=== PATIENT | female | born 2000 | race Hispanic/Latino ===

== ENCOUNTER 2020-10-22 13:55 | Emergency (ER) | payer BC, SELFPAY ==
[2020-10-22 14:06] VITALS: BP 123/87; PULSE 86; RESP 16; TEMP 36.5; O2SAT 100
--- NOTE | 2020-10-22 14:50 | ED.URI ---
HPI - URI/Sore Throat General Chief Complaint: Upper Respiratory Infection Stated Complaint: vieira/congestion Time Seen by Provider: 10/22/20 14:50 Source: patient Mode of arrival: ambulatory Limitations: no limitations History of Present Illness HPI Narrative: Radha Funk is a 19 yo female with no PMH who started having fatigue immediately after having vaccine on Sunday, no induration of left arm, states she has respiratory symptoms including congestion and cough. Related Data Home Medications Medication Instructions Recorded Confirmed No Home Medications 10/22/20 10/22/20 Allergies Allergy/AdvReac Type Severity Reaction Status Date / Time No Known Allergies Allergy Unverified 10/22/20 14:14 Review of Systems Review of Systems: CONSTITUTIONAL: Denies fever, chills, sweats. Fatigue EYES: Denies visual changes, redness, discharge. ENT: Denies rhinorrhea, has congestion, sore throat, otalgia. CARDIOVASCULAR: Denies chest pain, palpitations, edema. RESPIRATORY: Denies dyspnea, wheezing, has cough GASTROINTESTINAL: Denies abdominal pain, nausea, vomiting, diarrhea. GENITOURINARY: Denies dysuria, hematuria, abnormal discharge SKIN: Denies rash or itching. NEUROLOGIC: Denies numbness, or focal weakness. PSYCHIATRIC: Denies anxiety or depression. [facility] Past Medical History Medical History No acute medical problems Social History Social History (Updated 10/22/20 @ 14:59 by Viki Winchester CNP) Smoking status: Never smoker Alcohol intake: current Comments At time of signature, I agree with nursing past medical, surgical, social and family history. There is no relevant family history pertinent to the presenting complaint. Exam Narrative: GENERAL: This is a well-nourished, well-developed patient, in mild distress. HEAD: normocephalic, atraumatic. EYES: . Sclera clear/white. Vision is grossly intact. EARS: External ears normal, auditory canals clear and without drainage, TMs normal without perforation. Hearing grossly intact. NOSE: External nose normal with nasal discharge, nares without redness, has rhinorrhea. THROAT: Mucous membranes moist, posterior pharynx mild erythema NECK: Neck supple, non-tender CARDIOVASCULAR: Regular rate and rhythm without murmurs, gallops, or rubs. RESPIRATORY: Clear to auscultation. Breath sounds equal bilaterally. No wheezes, rales, or rhonchi. GASTROINTESTINAL: Abdomen soft, SKIN: warm, intact with no suspicious lesions or rash, good texture and turgor. NEURO: awake, alert, and oriented to person, place and time. There were no obvious focal neurologic abnormalities. Steady gait EXTREMITIES: Normal range of motion. BACK: Nontender without deformity Course Course Emergency Course: Patient told nurse that she has not had a menstrual cycle in 3 months and is not using control Suprax a test was done which was negative her UA was also done which had only protein in the urine Complaining of respiratory symptoms which can be treated only with Benadryl Zyrtec She asked for a Covid test because she got PCR she needs a work note because she is quarantined till the results are received Vital Signs Vital signs: Vital Signs Temperature 97.7 F 10/22/20 14:06 Pulse Rate 86 10/22/20 14:06 Respiratory Rate 16 10/22/20 14:06 Blood Pressure 123/87 10/22/20 14:06 Pulse Oximetry 100 10/22/20 14:06 Temperature 97.7 F 10/22/20 14:06 Pulse Rate 86 10/22/20 14:06 Respiratory Rate 16 10/22/20 14:06 Blood Pressure 123/87 10/22/20 14:06 Pulse Oximetry 100 10/22/20 14:06 MDM - URI/Sore Throat Differential Diagnosis Differential diagnosis: Likely upper respiratory infection, viral infection, influenza and pharyngitis Lab Data Labs: UCG Bedside Result Negative Reference Range: Negative Urine Glucose Negative
[2020-10-23 18:08] LABS: SARS-CoV-2 RNA PCR Negative
== END 2020-10-22 15:05 | disposition home or self-care (01) ==
PROVIDERS: Emergency Provider Nurse Practitioner
DX: J06.9 Acute upper respiratory infection, unspecified (principal); Z20.822 Contact with and (suspected) exposure to COVID-19
CPT/HCPCS: 81003; 81025; 99213; C9803; G0463; U0003; U0005

== ENCOUNTER 2023-01-05 14:45 | Outpatient (CLI) | payer BC, OTHER, SELFPAY ==
[2023-01-05 15:13] VITALS: BP 140/90; PULSE 83
[2023-01-05 15:15] VITALS: BP 140/90; PULSE 82; BMI 30.8
[2023-01-05 15:29] LABS: Basophils Percent Auto 0.2 % (0.2-1.2); Eosinophils Percent Auto 0.2 % (0-4.4); Hematocrit 33.1 % (37.0-47.0); Hemoglobin 10.9 g/dL (12.0-15.0); Immature Granulocyte Absolute 0.03 K/mm3 (0.00-0.031); Immature Granulocyte Percent A 0.4 % (0-0.5); Lymphocytes Percent Auto 22.3 % (18.3-44.2); Mean Corpuscular HGB Conc 32.9 g/dl (32-36); Mean Corpuscular Hemoglobin 26.5 pg (26-34); Mean Corpuscular Volume 80.5 fl (80-100); Mean Platelet Volume 12.5 fl (7.4-10.4); Monocytes Absolute Auto 0.4 K/mm3 (0.1-0.6); Monocytes Percent Auto 4.3 % (2.6-8.5); Neutrophils Absolute Auto 5.9 K/mm3 (1.3-6.7); Neutrophils Percent Auto 72.6 % (45.5-73.1); Platelet Count Result 229 k/mm3 (150-375); Red Blood Count 4.11 M/mm3 (4.2-5.4); Red Cell Distribution Width 13.1 % (11.5-14.5); White Blood Count 8.1 K/mm3 (4.5-10.0)
[2023-01-05 15:30] VITALS: BP 124/84; PULSE 77
[2023-01-05 15:35] LABS: Appearance Urine Cloudy (Clear); Bacteria Urine 1+ /hpf; Bilirubin Urine Negative (Negative); Blood Urine Trace (Negative); Color Urine Yellow (Yellow); Glucose Urine UA Negative (Negative); Ketones Urine Trace mg/dL (Negative); Leukocyte Esterase Ur Trace LEU/UL (NEGATIVE); Nitrate Urine Negative (Negative); Protein Urine 3+ mg/dL (Negative); RBC Urine 0-2 /hpf (0-2); Specific Grav Ur 1.026 (1.001-1.035); Squamous Epithelial Cell Urine Moderate /hpf (Few)
[2023-01-05 15:36] LABS: Creatinine Urine 184.5 mg/dL
[2023-01-05 15:41] LABS: Alanine Aminotransferase 14 U/L (6-35); Albumin Level 3.8 g/dL (3.5-5.1); Alkaline Phosphatase 180 U/L (38-126); Anion Gap 9 mmol/L (8-16); Aspartate Amino Transferase 23 U/L (14-36); Bilirubin,Total 0.3 mg/dL (0.2-1.3); Blood Urea Nitrogen 10 mg/dL (7-17); Calcium 9.1 mg/dL (8.4-10.2); Carbon Dioxide 21 mmol/L (22-30); Chloride 104 mmol/L (98-107); Estimated Glomerular Filt Rate > 60; Glucose 96 mg/dL (65-110); Potassium 4.4 mmol/L (3.4-5.0); Sodium 134 mmol/L (137-145); Uric Acid 5.5 mg/dL (2.5-7.5)
[2023-01-05 15:44] LABS: Total Protein Urine Random > 600 mg/dL
[2023-01-05 15:48] LABS: Add Urine Microscopic? YES
[2023-01-05 16:00] VITALS: BP 126/88; PULSE 80
[2023-01-05 16:15] VITALS: BP 126/88; PULSE 78
== END 2023-01-05 16:20 | disposition home or self-care (01) ==
LOC: ANHOBOP 14:55 → ANHOBPP 15:00
PROVIDERS: Visit Provider Advanced Practice Midwife
DX: O13.9 Gestational [pregnancy-induced] hypertension without significant proteinuria, unspecified trimester (principal); Z3A.00 Weeks of gestation of pregnancy not specified
CPT/HCPCS: 36415; 59025; 80053; 81001; 82570; 84156; 84550; 85025; 87086; 99199

== ENCOUNTER 2023-01-07 11:16 | Outpatient (RCR) | payer BC, OTHER, SELFPAY ==
[2023-01-07 12:11] VITALS: BP 132/80; PULSE 75
[2023-01-07 12:36] LABS: Collection Time Urine 24 HOURS
[2023-01-07 12:45] LABS: Creatinine Urine 83.5 mg/dL; Total Protein Urine Random 187 mg/dL
[2023-01-07 13:07] LABS: Total Protein Urine 24 Hr 2805 mg/24hr (28-141); Total Volume 24 Hour Urine 1500 ml
[2023-01-07 13:17] LABS: Patient Weight 200 Lbs
== END 2023-04-07 23:59 | disposition home or self-care (01) ==
LOC: ANHOBOP 11:16
PROVIDERS: Visit Provider Advanced Practice Midwife
DX: O16.3 Unspecified maternal hypertension, third trimester (principal); Z3A.37 37 weeks gestation of pregnancy
CPT/HCPCS: 59025; 81050; 82575; 84156

== ENCOUNTER 2023-01-08 11:36 | Inpatient (IN) | payer BC, OTHER, SELFPAY ==
[2023-01-08] VITALS (114 sets, daily range): BP systolic 121–162; BP diastolic 65–113; PULSE 42–126; RESP 18; TEMP 36.6–36.8; O2SAT 82–100; BMI 31.1
--- NOTE | 2023-01-08 12:00 | LDADM ---
This patient, Radha Funk, was admitted to Labor/Delivery/Recovery 103 on 01/08/23 at 11:36. Plans for labor, pain management and were discussed with patient. Patient/family oriented to hospital policies and general routines including ID bracelet, bed and alarms, visiting hours, pain management, procedures, bathroom and other care routines, personal items, smoking policy, room service/diet and guest tray routines, security routines, and visiting hours. Patient/Family are encouraged to report perceived risks to care and to ask questions if they do not understand what they are told or what they should do. See OBIX for further documentation.
[2023-01-08 12:43] LABS: Basophils Percent Auto 0.3 % (0.2-1.2); Eosinophils Percent Auto 0.3 % (0-4.4); Hematocrit 33.6 % (37.0-47.0); Hemoglobin 10.9 g/dL (12.0-15.0); Immature Granulocyte Absolute 0.02 K/mm3 (0.00-0.031); Immature Granulocyte Percent A 0.3 % (0-0.5); Lymphocytes Absolute Auto 1.93 K/mm3 (0.9-3.2); Lymphocytes Percent Auto 26.8 % (18.3-44.2); Mean Corpuscular HGB Conc 32.4 g/dl (32-36); Mean Corpuscular Hemoglobin 26.9 pg (26-34); Mean Platelet Volume 12.4 fl (7.4-10.4); Monocytes Absolute Auto 0.4 K/mm3 (0.1-0.6); Monocytes Percent Auto 5.3 % (2.6-8.5); Neutrophils Absolute Auto 4.8 K/mm3 (1.3-6.7); Platelet Count Result 214 k/mm3 (150-375); Red Blood Count 4.05 M/mm3 (4.2-5.4); Red Cell Distribution Width 13.2 % (11.5-14.5); White Blood Count 7.2 K/mm3 (4.5-10.0)
[2023-01-08] MEDS: DINOPROSTONE 10 MG VAG INSERT VAGINAL (12:43)
[2023-01-08 12:54] LABS: Alanine Aminotransferase 18 U/L (6-35); Albumin Level 3.9 g/dL (3.5-5.1); Alkaline Phosphatase 192 U/L (38-126); Anion Gap 9 mmol/L (8-16); Aspartate Amino Transferase 29 U/L (14-36); Bilirubin,Total 0.4 mg/dL (0.2-1.3); Blood Urea Nitrogen 10 mg/dL (7-17); Calcium 8.9 mg/dL (8.4-10.2); Carbon Dioxide 22 mmol/L (22-30); Chloride 104 mmol/L (98-107); Estimated Glomerular Filt Rate > 60; Glucose 87 mg/dL (65-110); Sodium 135 mmol/L (137-145)
[2023-01-08 16:17] LABS: Rapid Plasma Reagin Non-Reactive (NonReactive)
[2023-01-08] MEDS: LACTATED RINGERS 1,000 ML 125 ML IV CONT ×2 (17:56→22:59)
--- NOTE | 2023-01-08 19:41 | WPDANESEPPF ---
Anes - Initial Pre Proc Eval Procedure: labor epidural Date/Time: 01/08/23 19:41 Surgeon: Devora Dover MD Pre Op Diagnosis: labor pain Pre Op Diagnosis: Induction of Labor Patient Data Age: 22 Gender: F Height: 1.57 m Weight: 77.3 kg Last Vital Signs Temp 36.8 C 01/08/23 16:00 Pulse 74 01/08/23 19:38 BP 137/94 H 01/08/23 19:38 Pulse Ox 98 01/08/23 19:35 O2 Del Method Room Air 01/08/23 12:00 Allergies Allergy/AdvReac Type Severity Reaction Status Date / Time No Known Allergies Allergy Unverified 10/22/20 14:14 Home Medications Medication Instructions Recorded Confirmed Type prenat.vits,joseph,dvl-ueav-xxpdv 1 tablet 12/25/22 History valacyclovir 500 mg tablet 500 mg PO Q12H 12/25/22 12/25/22 History (Valtrex) Laboratory Tests 01/08/23 12:30 WBC 7.2 K/mm3 (4.5-10.0) RBC 4.05 L M/mm3 (4.2-5.4) Hgb 10.9 L g/dL (12.0-15.0) Hct 33.6 L % (37.0-47.0) MCV 83.0 fl (80-100) MCH 26.9 pg (26-34) MCHC 32.4 g/dl (32-36) RDW 13.2 % (11.5-14.5) Plt Count 214 k/mm3 (150-375) MPV 12.4 H fl (7.4-10.4) Immature Gran % (Auto) 0.3 % (0-0.5) Neut % (Auto) 67.0 % (45.5-73.1) Lymph % (Auto) 26.8 % (18.3-44.2) Stan[place] % (Auto) 5.3 % (2.6-8.5) Eos % (Auto) 0.3 % (0-4.4) Baso % (Auto) 0.3 % (0.2-1.2) Lymph # (Auto) 1.93 K/mm3 (0.9-3.2) Stan[place]aus # (Auto) 0.4 K/mm3 (0.1-0.6) Eos # (Auto) 0.0 K/mm3 (0-0.3) Baso # (Auto) 0.0 K/mm3 (0.0-0.1) Abs Immat Gran (auto) 0.02 K/mm3 (0.00-0.031) Absolute Neuts (auto) 4.8 K/mm3 (1.3-6.7) Absolute Nucleated RBC 0.0 K/mm3 (0.0-0.012) Nucleated RBC % 0.0 % (0.0-0.2) Sodium 135 L mmol/L (137-145) Potassium 4.0 mmol/L (3.4-5.0) Chloride 104 mmol/L (98-107) Carbon Dioxide 22 mmol/L (22-30) Anion Gap 9 mmol/L (8-16) BUN 10 mg/dL (7-17) Creatinine 0.50 L mg/dL (0.7-1.0) Estim Creat Clear Calc Not Reportable Estimated GFR > 60 (59 - ) Glucose 87 mg/dL (65-110) Uric Acid 6.0 mg/dL (2.5-7.5) Calcium 8.9 mg/dL (8.4-10.2) Total Bilirubin 0.4 mg/dL (0.2-1.3) AST 29 U/L (14-36) ALT 18 U/L (6-35) Alkaline Phosphatase 192 H U/L (38-126) Total Protein 7.0 g/dL (6.3-8.2) Albumin 3.9 g/dL (3.5-5.1) RPR Non-reactive (NonReactive) Blood Type B Positive Antibody Screen Negative Patient hx anesthesia problems: none Family hx anesthesia problems: none Results Review: All pre-operative results and documents have been reviewed as part of the pre-operative evaluation. [facility] Past Medical History Medical History No acute medical problems Family History Family History (Updated 12/25/22 @ 14:39 by Mariel Perez RN) Sibling Diabetes mellitus Social History Social History (Updated 10/22/20 @ 14:59 by Viki Winchester, SUN) Smoking status: Never smoker Alcohol intake: current Substance use: never Lack of Transportation: No Lack of Food: Never True Current Housing: I Have Housing Concerned About Future Housing: No Difficulty Paying Gas/Electric Bills: No Difficulty Paying for Meds: No Currently Unemployed: No Education: High School Diploma/GED Difficulty w/ Childcare or Family Care: No Spiritual care concerns: No Anes - Eval Final PreProcedure Day of Procedure 01/08/23 19:41 Patient weight: obese ASA classification: III Anesthetic plan: proceed Anesthesia type and monitoring: regional epidural and standard monitoring Results Review: All pre-operative results and documents have been reviewed as part of the pre-operative evaluation. Informed Consent: The patient's anesthetic plan and its attendant risks and benefits were discussed with the patient/family/POA. Questions were solicited and answers provided to th
--- NOTE | 2023-01-08 20:05 | WPDOBADMIT ---
Obstetrics - Admit Note Admission Note: record reviewed. No pertinent additions to the history and/or any subsequent changes in the physical findings that are not consistent with the expected course of the were found. Additions to the history and/or subsequent changes in the physical findings follow. IOL preeclampsia without severe features, SVE 4/80/-2, AROM moderate amount of clear odorless fluid, dr encarnacion co-managing care. IUPC placed
[2023-01-08] MEDS: valACYclovir HCL 500 MG TABLET PO (21:32)
[2023-01-08] MEDS: LACTATED RINGERS 500 ML 999 ML IV CONT (22:25)
[2023-01-09] VITALS (77 sets, daily range): BP systolic 106–167; BP diastolic 62–113; PULSE 68–122; RESP 16–18; TEMP 36.4–37.1; O2SAT 89–100
--- NOTE | 2023-01-09 02:57 | PM.OBPRVD ---
OB - Vaginal Delivery Note Procedure Delivery date: 01/09/23 Events: Preeclampsia w/o severe features Induction method: AROM and Per Cervidil Protocol Delivery monitor: External FHT and Internal FHT Route of delivery: Laceration Description: Labial (right) Delivery repair: vicryl Specimen: Yes Quantitative Blood Loss (ml): 125 Anesthesia type: Epidural Disposition: Floor Complications: None Baby Date of : 01/09/23 Time of : 02:41 Weeks of gestation at delivery: 38 gender: Female presentation: vertex position: Left Occiput Anterior Placenta delivery description: Spontaneous Cord Vessel Description: 3 Vessels and Delayed Cord Clamping score one minute: 8 score five minutes: 9 Narrative: mother and baby skin to skin in stable condition
[2023-01-09] MEDS: OXYTOCIN 30 UNITS/NS 500 ML 30 UNITS/500 ML BAG 125 UNITS IV CONT (03:50)
--- NOTE | 2023-01-09 05:25 | PC.NURSE ---
Patient transferred to post room # 285 via ( W/C ). Support person present. Oriented to unit, room, information board, rooming in, admission packet and security measures. Patient verbalizes understanding.
[2023-01-09] MEDS: IBUPROFEN 600 MG TABLET PO (05:40)
--- NOTE | 2023-01-09 14:55 | PC.NURSE ---
[id number] Breast pump provided prior to meeting due to nipple shield use. Instructions given on cleaning, care, usage, that there should be no pain, pumping schedule for milk production, collection, and storage of human milk. Patient was assessed for correct placement, flange size, to pump for comfort and nipple stretching/stimulation for adequate milk production every 3 hours (8 times in 24 hours) 1-2 times at night. Mother is encouraged to record the pumping schedule on the feeding sheet.?Mother voiced understanding of the education shared along with mom/baby guide and the pump measurement, flange fit handout for additional resource information. Resources provided for inpatient and outpatient services with the feeding sheet, mom/baby guide and name written on the communication board. Mother voiced understanding of information and will call if there is a request for assistance. Reported to the Primary RN.
--- NOTE | 2023-01-09 16:10 | PCCCNOTE ---
Care Coordination met with pt and FOB this afternoon to discuss discharge planning. Pt.'s current D/C plan is to return home with her parents. Pt. is independent with ADls and ambulation. She states she has everything needed to safely bring baby home. She will continue to breast feed and bottle feed. Pt. is in process of applying for WIC. 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 Neither pt. nor baby were drug tested at admission. Will follow.
[2023-01-10] VITALS (17 sets, daily range): BP systolic 117–136; BP diastolic 78–94; PULSE 62–98; RESP 16–18; TEMP 36.5–36.9; O2SAT 96–100
[2023-01-10] MEDS: IBUPROFEN 600 MG TABLET PO ×4 (00:30→23:53)
[2023-01-10 05:03] LABS: Hematocrit 23.9 % (37.0-47.0); Hemoglobin 7.7 g/dL (12.0-15.0)
--- NOTE | 2023-01-10 07:42 | PM.OBPNVD ---
OB - PN: Subj Subjective Date/time seen: 01/10/23 07:42 Interval history: PP Day 1 no complaints H&H 7.7 Baby doing well denies MELLO, vision changes, epigastric pain OB - PN: Obj Data Labs 01/10/23 04:30 01/08/23 12:30 Labs: Laboratory Results - last 24 hr 01/10/23 04:30 Hgb 7.7 L D Hct 23.9 L OB - PN A/P Plan day: 1 Plan: routine care Comments: plan a blood transfusion 2 units Time Spent With Patient Time: Total time spent is greater than 50% in coordination of care (as documented) at patient's floor/unit and/or counseling patient: Review of Systems Review of Systems: All systems reviewed & are unremarkable except as noted in HPI and below Exam Const: General: cooperative, healthy appearing and comfortable Resp: Effort & Inspection: normal respiratory effort Cardio: Rate: regular rate GI: Other: soft Skin: General skin exam: normal color Neuro: General: patient oriented x3
[2023-01-10] MEDS: POLYSACCHARIDE IRON COMPLEX 150 MG CAPSULE PO ×2 (08:12→16:27)
[2023-01-10] MEDS: MULTIVIT/MIN/PREN/FOL AC/IRON TABLET 1 TAB PO (08:13)
[2023-01-10] MEDS: DOCUSATE SODIUM 100 MG CAPSULE PO ×2 (08:13→16:27)
--- NOTE | 2023-01-10 09:30 | PC.NURSE ---
0930 RN went in room to start blood, per patient she would like to wait until her mother arrives who is going to help her take a shower before she receives the blood. Patient to call out when she is ready.
[2023-01-10] MEDS: ACETAMINOPHEN 325 MG TABLET 650 MG PO (19:14)
[2023-01-11 04:30] VITALS: BP 131/83; PULSE 79; RESP 16; TEMP 36.6
[2023-01-11] MEDS: ACETAMINOPHEN 325 MG TABLET 650 MG PO (04:40)
[2023-01-11 05:21] LABS: Hematocrit 29.8 % (37.0-47.0); Hemoglobin 9.9 g/dL (12.0-15.0)
--- NOTE | 2023-01-11 08:00 | PC.NURSE ---
PT introductions made and plan of care discussed per post , pain management, breast/bottle feeding, daily care activities and pending discharge to home. PT sole recipient of such instructions since fob speaks only Salvadorean but pt is bilingual. Language is a barriers for the fob. PT received such instructions per one to one discussion, mom baby care guide and demonstrations this shift. PT verbalized understanding
--- NOTE | 2023-01-11 08:29 | PM.OBPNVD ---
OB - PN: Subj Subjective Date/time seen: 01/11/23 08:29 Interval history: PP Day 1 no complaints H&H 7.7 Baby doing well denies MELLO, vision changes, epigastric pain Patient comments: no complaints, pain well controlled, incisional pain, tolerating diet and flatus present OB - PN: Obj Data Labs 01/11/23 04:36 01/08/23 12:30 Labs: Laboratory Results - last 24 hr 01/08/23 01/11/23 12:30 04:36 Hgb 9.9 L Hct 29.8 L Blood Type B Positive Antibody Screen Negative Crossmatch See Detail OB - PN A/P Plan day: 1 Plan: routine care Comments: No problems, routine care Time Spent With Patient Time: Total time spent is greater than 50% in coordination of care (as documented) at patient's floor/unit and/or counseling patient: Exam Const: General: comfortable, no acute distress and alert Resp: Effort & Inspection: normal respiratory effort Auscultation: no crackles, no rales and no rhonchi Cardio: Rate: regular rate Heart sounds: no click, no murmurs and no rubs GI: Inspection: non-distended GI Palp: No Tenderness to palpation present (GI) Auscultation: normal bowel sounds Other: Incision - CDI Extrem: General: normal to inspection, no pedal edema and no calf tenderness
--- NOTE | 2023-01-11 08:30 | PM.OBDSVD ---
DS: Admitting Diagnosis Discharge Date January 11, 2023 Admitting Diagnosis term DS: Discharge Diagnosis Discharge Diagnosis (1) Term delivered: Code(s): O80 - Encounter for full-term uncomplicated delivery Status: Acute OB - DS: Summary OB Procedures : None OB Procedures Intrapartum: Spontaneous Vag Delivery OB Procedures: : None Peripartum Data Laceration Description: Labial (right) Time Spent with Patient Time attestation: Total time spent providing and/or coordinating discharge services: DS: Data Data Completed and Pending Completed studies during hospitalization: Pending at discharge 01/09/23 03:02 Surgical [PTH] Routine Labs on day of discharge: Labs from last 24 hours 01/11/23 01/08/23 04:36 12:30 Hgb 9.9 L Hct 29.8 L Blood Type B Positive Antibody Screen Negative Crossmatch See Detail Discharge Plan Discharge Discharging Clinician: Devora Dover Patient Disposition: Home, Self-Care Activity: pelvic rest Diet: regular Discharge Instructions: Education: Mom and Baby Guide Given to: Mother Follow-Up: Call your delivering provider's office for an appointment to be seen in: 1 Week Mom and baby should come to the [facility] for the follow-up appointment. Appointment Date/Time: 01/12/23 @ 1430 What to expect at your follow-up visit: Blood Pressure Check Call [phone] if you are unable to keep your appointment time. BREAST CARE: * Wear a snug supportive bra. * For engorgement discomfort: Breast Feeding: * Apply warm moist washcloths * Express milk as needed to relieve engorgement * Wear loose clothing Bottle Feeding: * May apply ice packs * For sore nipples: * Identify correct latch-on * Apply warm moist washcloths before and after nursing * Air dry nipples after nursing * May apply Lansinoh cream to nipples PERINEAL CARE: * Until bleeding stops, use your [place] bottle after urinating * Change your pad frequently throughout the day * You may take sitz baths several times a day (fill your bathtub with warm water and soak for 20 minutes.) Do NOT bathe in the water * No tub baths until seen by your physician - You may shower ACTIVITY: * Rest as much as possible. * Do not exercise or lift anything heavier than your baby (such as laundry or other children.) * Avoid stairs or driving as much as possible. * Do not put anything into the vagina. No douching, tampons, or sexual activity until seen by physician. NOTIFY PHYSICIAN IF YOU HAVE ANY QUESTIONS OR IF ANY OF THE FOLLOWING SYMPTOMS OCCUR: * If your perineum becomes red, swollen, or more painful than what you have experienced in the hospital. * If your vaginal bleeding becomes foul smelling. * If your vaginal bleeding becomes more heavy than a period or if your bleeding changes from pink to bright red. However, you may pass an occasional walnut-sized clot once or twice for the first week . * If you experience a sharp, shooting pain in you calves. * If you discover a hard, reddened area on your breast or if you experience flu-like symptoms. * If you have a fever of 100.4 or greater DIET: * Eat regular, well-balanced meals. * Drink plenty of fluids daily. If , drink to thirst. Patient Instructions: Antibiotic Form Stand Alone Forms: General Discharge Information Follow-up/Referrals: Devora Dover MD [Physician] - Discharge Medications: No Action #2 Tablet 1 tablet valacyclovir [Valtrex] 500 mg Tablet 500 mg PO Q12H Patient Comments: picking up script today 12/25 Date of admission: 01/08/23 11:36 Primary Care Provider: PHYSICIAN,VERTICAL LATHE OPERATOR Admitting Provider: Devora Dover Attending physician on admission: Devora Dover Condition: Stable
[2023-01-11 08:35] VITALS: BP 136/87; PULSE 64; RESP 18; TEMP 37.2; O2SAT 99
[2023-01-11 09:00] VITALS: PULSE 64; RESP 18; O2SAT 99
[2023-01-11] MEDS: IBUPROFEN 600 MG TABLET PO (09:02)
[2023-01-11] MEDS: DOCUSATE SODIUM 100 MG CAPSULE PO (09:04)
[2023-01-11] MEDS: POLYSACCHARIDE IRON COMPLEX 150 MG CAPSULE PO (09:04)
[2023-01-11] MEDS: MULTIVIT/MIN/PREN/FOL AC/IRON TABLET 1 TAB PO (09:04)
--- NOTE | 2023-01-11 12:00 | PC.NURSE ---
PT received discharge instructions per protocol and verbalized understanding of such care.
--- NOTE | 2023-01-11 12:30 | PC.NURSE ---
Pt discharged to home ambulatory accompanied by fob and infant and walked to waiting car. follow up appts confirmed
--- NOTE | 2023-01-11 13:48 | PC.NURSE ---
Primary RN reported very appropriate education to mother regarding , protecting her milk supply and the risks of bottle feeding. Patient states she will breastfeed at home and declines assistance.
[2023-01-11 15:10] VITALS: BP 99/60; PULSE 82; RESP 16; TEMP 36.5; O2SAT 96
[2023-01-12 15:25] VITALS: BP 132/92; PULSE 104; RESP 18; TEMP 36.8; O2SAT 100
== END 2023-01-11 12:30 | disposition home or self-care (01) | DRG 807 ==
LOC: ANHLDR 11:47 → ANHOB2 01-09 06:12
PROVIDERS: Admitting Provider Obstetrics & Gynecology; Referring Provider Advanced Practice Midwife; Visit Provider Obstetrics & Gynecology
DX: O13.4 Gestational [pregnancy-induced] hypertension without significant proteinuria, complicating childbirth (principal); Z37.0 Single live birth; O14.04 Mild to moderate pre-eclampsia, complicating childbirth; O70.0 First degree perineal laceration during delivery; Z3A.38 38 weeks gestation of pregnancy
CPT/HCPCS: 36415; 36430; 80053; 84550; 85014; 85018; 85025; 86592; 86850; 86900; 86901; 86923; 88307; A9270; J2590; J2795; J7120; P9016

== ENCOUNTER 2023-11-23 11:56 | Emergency (ER) | payer BC, OTHER, SELFPAY ==
[2023-11-23 12:11] VITALS: BP 127/65; PULSE 65; RESP 16; TEMP 36.3; O2SAT 99
--- NOTE | 2023-11-23 12:12 | ED.ABDPAIN ---
HPI - Abdominal Pain General Chief Complaint: Abdominal Pain Stated Complaint: left side stomach pain Time Seen by Provider: 11/23/23 12:13 Source: patient and RN notes reviewed Mode of arrival: ambulatory Limitations: no limitations History of Present Illness HPI narrative: 22-year-old female presents with concern for intermittent epigastric pain and for about 6 months. She reports pain usually occurs after she eats. She reports when she 1st started having it she would feel the need to vomit, now she purposefully makes herself vomit to ease the pain, which it does. She denies any current pain. She denies diarrhea. She reports she took omeprazole intermittently without relief. MD elicited complaint: abdominal pain Related Data Allergies Allergy/AdvReac Type Severity Reaction Status Date / Time No Known Allergies Allergy Unverified 11/23/23 12:14 Review of Systems Review of Systems: CONSTITUTIONAL: Denies malaise, chills, sweats, or fever. ENT: Denies rhinorrhea, congestion, sinus pain, otalgia or sore throat. CARDIOVASCULAR: Denies chest pain, palpitations, or edema. RESPIRATORY: Denies cough or dyspnea. GASTROINTESTINAL: Denies current abdominal pain, nausea, vomiting, diarrhea, bloody, or mucous stools. GENITOURINARY: Denies dysuria or hematuria. MUSCULOSKELETAL: Denies myalgia. NEUROLOGIC: Denies headache. All systems reviewed & are unremarkable except as noted in HPI and below PMFSH Past Medical History Medical History No acute medical problems Family History Family History (Updated 12/25/22 @ 14:39 by Mariel Perez RN) Sibling Diabetes mellitus Social History Social History (Updated 10/22/20 @ 14:59 by Viik Winchester, SUN) Smoking status: Never smoker Alcohol intake: current Substance use: never Do You Feel Safe in your Home?: Yes Lack of Transportation: No Lack of Food: Never True Current Housing: I Have Housing Concerned About Future Housing: No Difficulty Paying Gas/Electric Bills: No Difficulty Paying for Meds: No Currently Unemployed: No Education: High School Diploma/GED Difficulty w/ Childcare or Family Care: No Spiritual care concerns: No Comments At time of signature, agree with nursing past medical, surgical, social and family history. There is no relevant family history pertinent to the presenting complaint Exam Narrative: GENERAL: Well-appearing, well-nourished, and in no acute distress. HEAD: Normocephalic, atraumatic. EYES: PERRLA, conjunctivae clear, and EOMI. ENT: Nares clear. Mucous membranes moist. Oropharynx without edema, erythema, or lesions. Tonsils not enlarged and without exudate. NECK: Supple. No lymphadenopathy CHEST: Speaks in full sentences. No respiratory distress. HEART: Regular rate and rhythm. ABDOMEN: Soft, flat, nondistended, nontender. No guarding, rebound tenderness, or rigidity. No pulsatile masses. Bowel sounds present in all four quadrants. No organomegaly. Negative Emanuel?s sign. No periumbilical tenderness. No Supra public tenderness or distension. Good femoral pulses bilaterally. No hernia noted. No scars or surface trauma. SKIN: Warm, dry, no rash. NEURO: Alert and oriented x3. PSYCH: Normal mood and affect Course Course Emergency Course: Patient is aware of diagnosis, understands and agrees to treatment plan. Anticipatory guidance given. Patient agrees to follow-up as directed and is aware of reasons to seek care at the emergency department. Portions of this record may have been created with voice recognition software Level of Care: Express Care Visit Vital Signs Vital signs: Vital Signs Temperature 97.4 F L 11/23/23 12:11 Pulse Rate 65 11/23/23 12:11 Respiratory Rate 16 11/23/23 12:11 Blood Pressure 127/65 11/23/23 12:11 Pulse Oximetry 99 11/23/23 12:11 Oxygen Delivery Room Air 11/23/23 12:11 Temperature 97.4 F
[2023-11-23 12:14] VITALS: BP 127/65; PULSE 65; RESP 16; TEMP 36.3; O2SAT 99
== END 2023-11-23 12:40 | disposition home or self-care (01) ==
PROVIDERS: Emergency Provider Nurse Practitioner
DX: R10.13 Epigastric pain (principal)
CPT/HCPCS: 99213; G0463

== ENCOUNTER 2024-07-10 11:05 | Outpatient (CLI) | payer BC, OTHER, SELFPAY ==
[2024-07-10 11:55] LABS: Hematocrit 36.1 % (37.0-47.0); Hemoglobin 11.6 g/dL (12.0-15.0); Mean Corpuscular HGB Conc 32.1 g/dl (32-36); Mean Corpuscular Hemoglobin 25.6 pg (26-34); Mean Corpuscular Volume 79.5 fl (80-100); Mean Platelet Volume 11.3 fl (7.4-10.4); Platelet Count Result 319 k/mm3 (150-375); Red Blood Count 4.54 M/mm3 (4.2-5.4); Red Cell Distribution Width 14.9 % (11.5-14.5); White Blood Count 6.3 K/mm3 (4.5-10.0)
--- OUTSIDE RECORDS SUMMARY | 2024-07-10 12:13 | XMS_ITS | Data Portability ---
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 Score Blood Edema Fundus Height Fundus Units Glucose Ketones Leukocytes Nitrite Labor Signs Protein Cervic Dilation Cervic Effacement Cervic Station Type Weight in lbs Pre/Post Dialysis Refused BP Diastolic BP Location Tested BP Systolic BP Type Fetus Heart Rate Present Fetus Movement Comments Flowsheet Date 09/25/2022 Reyes Score Blood Edema Fundus Height Fundus Units Glucose Ketones Leukocytes Nitrite Labor Signs Protein Cervic Dilation Cervic Effacement Cervic Station neg none none trace Type Weight in lbs Pre/Post Dialysis Refused Weight 143.408344853208 BP Diastolic BP Location Tested BP Systolic BP Type 74 114 Fetus Heart Rate Present A 135 Fetus Movement A Yes Comments Doing fine, no concerns. GCT next visit. US today 66%. RH pos. Flowsheet Date 10/23/2022 Reyes Score Blood Edema Fundus Height Fundus Units Glucose Ketones Leukocytes Nitrite Labor Signs Protein Cervic Dilation Cervic Effacement Cervic Station Type Weight in lbs Pre/Post Dialysis Refused BP Diastolic BP Location Tested BP Systolic BP Type Fetus Heart Rate Present Fetus Movement Comments Flowsheet Date 10/23/2022 Reyes Score Blood Edema Fundus Height Fundus Units Glucose Ketones Leukocytes Nitrite Labor Signs Protein Cervic Dilation Cervic Effacement Cervic Station neg trace 28 none trace Type Weight in lbs Pre/Post Dialysis Refused Weight 151.408817565234 BP Diastolic BP Location Tested BP Systolic BP Type 71 105 Fetus Heart Rate Present A 140 Fetus Movement A Yes Comments Doing well, no concerns. GCT today. Discussed and encouraged Tdap and flu now, also mentioned RSV vaccine. US 73%. UDS neg. Flowsheet Date 11/06/2022 Reyes Score Blood Edema Fundus Height Fundus Units Glucose Ketones Leukocytes Nitrite Labor Signs Protein Cervic Dilation Cervic Effacement Cervic Station neg none none trace Type Weight in lbs Pre/Post Dialysis Refused Weight 152.501572596730 BP Diastolic BP Location Tested BP Systolic BP Type 72 104 Fetus Heart Rate Present A 147 Present Fetus Movement A Yes Comments doing well, +FM, start valtr ex around 36 weeks, planning tdap and flu has growth scheduled f/u 2 weeks Flowsheet Date 11/20/2022 Reyes Score Blood Edema Fundus Height Fundus Units Glucose Ketones Leukocytes Nitrite Labor Signs Protein Cervic Dilation Cervic Effacement Cervic Station Type Weight in lbs Pre/Post Dialysis Refused BP Diastolic BP Location Tested BP Systolic BP Type Fetus Heart Rate Present Fetus Movement Comments Flowsheet Date 11/20/2022 Reyes Score Blood Edema Fundus Height Fundus Units Glucose Ketones Leukocytes Nitrite Labor Signs Protein Cervic Dilation Cervic Effacement Cervic Station Type Weight in lbs Pre/Post Dialysis Refused Weight 158.41054502067 BP Diastolic BP Location Tested BP Systolic BP Type 81 114 Fetus Heart Rate Present A 145 Fetus Movement A Yes Comments Good movement, BH cont ractions. No bleeding, LOF. Valtrex sent last visit. Supposed to get flu/tdap this week. EFW 73%. RTC 2 weeks. Flowsheet Date 12/04/2022 Reyes Score Blood Edema Fundus Height Fundus Units Glucose Ketones Leukocytes Nitrite Labor Signs Protein Cervic Dilation Cervic Effacement Cervic Station Type Weight in lbs Pre/Post Dialysis Refused Weight 161.000840036453 BP Diastolic BP Location Tested BP Systolic BP Type 83 121 Fetus Heart Rate Present Fetus Movement Comments Baby very active, no crampin g, bleeding, LOF. Still needs to do Tdap vaccine, discussed r/b to vaccination. Flowsheet Date 12/20/2022 Reyes Score Blood Edema Fundus Height Fundus Units Glucose Ketones Leukocytes Nitrite Labor Signs Protein Cervic Dilation Cervic Effacement Cervic Station Type Weight in lbs Pre/Post Dialysis Refused BP Diastolic BP Location Tested BP Systolic BP Type Fetus Heart Rate Present Fetus Movement Comments Flowsheet Date 12/20/2022 Reyes Score Blood Edema Fundus Height Fundus Units Glucose Ketones Leukocytes Nitrite Labor Signs Protein Cervic Dilation Cervic Effacement Cervic Station neg none none trace Type Weight in lbs Pre/Post Dialysis Refused Weight 163.630258929872 BP Diastolic BP Location Tested BP Systolic BP Type 78 127 Fetus Heart Rate Present Fetus Movement A Yes Comments patient is having some disch arge. doing well, efw 37%,valtrex bid start today, gbs done, precautions and education, rsv, flu, tdap done today Flowsheet Date 01/05/2023 Reyes Score Blood Edema Fundus Height Fundus Units Glucose Ketones Leukocytes Nitrite Labor Signs Protein Cervic Dilation Cervic Effacement Cervic Station neg none none trace 1cm 50% -3 Type Weight in lbs Pre/Post Dialysis Refused Weight 169.892603546381 BP Diastolic BP Location Tested BP Systolic BP Type 94 137 100 140 Fetus Heart Rate Present A 150 Fetus Movement A Yes Comments patient states that having s ome cramping, discharge, swelling and nausea. denies vieira, visual changes, pain, does c/o some swelling, precautions and education Flowsheet Date 01/08/2023 Reyes Score Blood Edema Fundus Height Fundus Units Glucose Ketones Leukocytes Nitrite Labor Signs Protein Cervic Dilation Cervic Effacement Cervic Station Type Weight in lbs Pre/Post Dialysis Refused BP Diastolic BP Location Tested BP Systolic BP Type Fetus Heart Rate Present Fetus Movement Comments Menstrual History Last Menstrual Date Menses Monthly On Bcp Conception Prior Menses Frequency Hcg Plus Date Menarche Onset Age 0304/10/2022 Genetic Screening And Infection History Question Response Note Mental Retardation/Autism false Patient's Age Will Be 35 Years Or Older At Estim ated Date of Delivery false Thalassemia (Yoruba, Occitan, Mediterranean, Or Background): MCV < 80 false Neural Tube Defect (Meningomyelocele, Spina Bifi da, Or Anencephaly) false Congenital Heart Defect false Down Syndrome false Alessio-Sachs (eg, Protestant, Cajun, Cook Islander-[place]) f alse Sukhi Disease false Sickle Cell Disease Or Trait () false Hemophilia Or Other Blood Disorders false Muscular Dystrophy false Cystic Fibrosis false [place]'s Chorea false Intellectual Disability/Autism false If Yes, Was Person Tested For Fragile X? false Other Inherited Genetic Or Chromosomal Disorder false Maternal Metabolic Disorder (eg, Type 1 Diabetes , PKU) false Patient Or Baby's Father Had A Child With Defects Not Listed Above false Recurrent Loss, Or A Stillbirth false Medications (including Suppl ements, Vitamins, Herbs, OTC Drugs), Illicit/Recreational Drugs, Alcohol true If Yes, Agent(s) And Strength/Dosage false Any Other Genetic History false Live With Someone With TB Or Exposed To TB false Patient Or Partner Has History Of Genital Herpes true Rash Or Viral Illness Since Last Menstrual Perio d false History Of STD, Gonorrhea, Chlamydia, HPV, Syphi lis false Other Infection History false History of HIV false History of Hepatitis false Prior GBS-infected child false Hemoglobinopathy Or Carrier false Other Structural Defect false Recent Travel History Outside of Country false Delivery Information Delivery Date Delivery Type Labor Anesthesia Weeks Gestation Incision Type Labor Labor Length Hrs Delivered By Post Complications Tubal Sterilization Discharge Date Comments 3 Induce d Regional-Ep idural 38.1 false Rosita Smith CNMegha Cyst of uterine adnexa, Fentanyl dependenc e, Genital herpes simplex, Mixed anxiety and depressiv e disorder, Placenta circumval dewayne, PRE-E Discharge Information Feeding Method Contraceptive Method Maternal HG B and HCT Levels
--- OUTSIDE RECORDS SUMMARY | 2024-07-10 12:13 | XMS_ITS | Clinical Summary ---
Author Organization [facility] Address [address] [address] Care Team Providers Care Housing Manager Name Role Phone John Medeiros MD Primary Care Provider [phone] Source Comments [facility],non-owned Affiliates and Associated Physician Practices is amultiple site organization consisting of ambulatory clinics and hospital sitesin [place], [place], [place] and [place]. This disclosure is being madepursuant to the Care Everywhere program and may not contain all information available regarding this patient. Last updated 17.[facility] Allergies No known active allergies Medications * Be aware that medications may not be up to date on this document. Alwaysverify current medications with the patient. polyethylene glycol 3350 (MIRALAX) packet Take 17 g by mouth once daily 72 packet 05/17/2017 Active Social History Tobacco Use Types Packs/Day Years Used Date Smoking Tobacco: Never Smokeless Tobacco: Never Comments No Sex and Gender Information Value Date Recorded Sex Assigned at Not on file Legal Sex Female 6:44 PM CDT Gender Identity Not on file Sexual Orientation Not on file Last Filed Vital Signs Vital Sign Reading Time Taken Comments Blood Pressure 105/72 05/17/2017 8:56 PM CDT Pulse 105 05/17/2017 8:56 PM CDT Temperature 37.6 C (99.6 F) 05/17/2017 8:56 PM CDT Respiratory Rate 20 05/17/2017 8:56 PM CDT Oxygen Saturation 98% 05/17/2017 7:11 PM CDT Inhaled Oxygen Concentration - - Weight 51.8 kg (114 lb 3.2 oz) 05/17/2017 7:07 P M CDT Height 157.5 cm (5' 2) 05/17/2017 7:07 PM CDT Body Mass Index 20.89 05/17/2017 7:07 PM CDT Plan of Treatment Health Maintenance Due Date Last Done Comments PAP SMEAR 1998 HIV SCREENING 2013 HPV VACCINE (1 - 3-dose series) 2013 CHLAMYDIA/GONORRHEA SCREENING 2014 HEPATITIS C SCREENING 12/26/2016 DTAP/TDAP/TD VACCINES (1 - Tdap) 2017 HEPATITIS B VACCINE (1 of 3 - 19+ 3-dose series) 2017 COVID-19 VACCINE (1 - 2023-2 5 season) 2023 DEPRESSION SCREENING 02/06/2024 INFLUENZA VACCINE (Season Ended) 2024 ZOSTER VACCINE (1 of 2) 2048 HIB VACCINE Aged Out No longer eligi ble based on patient's age to complete this topic MENINGOCOCCAL (Group B) VACC INE SHARED DECISION-MAKING Aged Out No longer eligibl e based on patient's age to complete this topic MENINGOCOCCAL GROUPS A/C/Y/W VACCINE Aged Out No longer eligible b ased on patient's age to complete this topic PNEUMOCOCCAL VACCINE Aged Out No long er eligible based on patient's age to complete this topic Additional Health Concerns Infection Onset Date Last Indicated ESBL GNR 05/17/2017 05/17/2017 Insurance ANTH [facility]/BLUE [facility] Care Teams Housing Manager Relationship Specialty Start Date End Date John Medeiros MD [address] [place] [address] [address] [place] [address] PCP - General Family Medicine 05/17/17
--- OUTSIDE RECORDS SUMMARY | 2024-07-10 12:14 | XMS_ITS | Referral Summary ---
Author Organization [facility] Address [address] [place] [id number] Care Team Providers Care Assistant Finance Manager Name Role Phone No, Physician Primary Care Provider [phone] Encounters Date Type Department Care Team Description 07/04/2024 11:25 AM CDT Lab [facility] [address] [place] [address] [place] [address] Calculus of gallbladder without cholecystitis without obstruction 07/03/2024 2:15 PM CDT Office [facility] [address] [place] [address] [address] [place] [address] Calculus of gallbladder without cholecystitis without obstruction 06/18/2024 7:15 PM CDT - 06/18/2024 10:04 PM CDT Emergency [facility] Emergency Department [address] [place] [phone] Glenna Pratt MD Epigastric pain (Primary Dx); Elevated LFTs; Calculus of gallbladder without cholecystitis without obstruction Discharge Disposition: Discharge to home or self care 06/18/2024 Telephone [facility] Emergency Department [address] [place] [phone] Ruddy Robbins RN 06/15/2024 9:22 PM CDT - 06/16/2024 1:04 AM CDT Emergency [facility] Emergency Department [address] [place] [address] Rod Cardenas MD Odom, Elizabeth Burkhart, MD Abdominal pain, epigastric (Primary Dx) Discharge Disposition: Discharge to home or self care from Last 3 Months Allergies No known active allergies Medications vit [id number]-d vieira 27mg iron- 800 mcg-250 mg capsule Take by mouth Active pantoprazole DR (PROTONIX) 40 mg EC tablet Take 1 tablet (40 mg total) by mouth 2 (two) times a day for 14 days 28 tablet 06/16/2024 Active ibuprofen (ADVIL,MOTRIN) 600 mg tablet Take 1 tablet (600 mg total) by mouth 3 (three) times a day for 7 days 21 tablet 06/16/2024 Active Problems No known active problems Social History Tobacco Use Types Packs/Day Years Used Date Smoking Tobacco: Never Smokeless Tobacco: Never Tobacco Cessation:Counseling Given: Not Answered Alcohol Use Standard Drinks/Week Comments Never 0 (1 standard drink = 0.6 oz pur e alcohol) Hunger Vital Sign Answer Date Recorded Within the past 12 months, y ou worried that your food would run out before you got the money to buy more. Never true 07/04/19 25 Within the past 12 months, t he food you bought just didn't last and you didn't have money to get more. Never true 07/03/2024 Personal Safety Answer Date Recorded Have you ever been in or are you currently in a harmful physical or emotional relationship or is someone making you feel afraid or unsafe? Denies 06/18/2024 Comments No Sex and Gender Information Value Date Recorded Sex Assigned at Not on file Legal Sex Female 11:23 AM CDT Gender Identity Not on file Sexual Orientation Not on file Last Filed Vital Signs Vital Sign Reading Time Taken Comments Blood Pressure 109/73 07/03/2024 2:19 PM CDT Pulse 83 07/03/2024 2:19 PM CDT Temperature 36.4 C (97.6 F) 07/03/2024 2:19 PM CDT Respiratory Rate 17 06/18/2024 4:29 PM CDT Oxygen Saturation 95% 07/03/2024 2:19 PM CDT Inhaled Oxygen Concentration - - Weight 50.1 kg (110 lb 8 oz) 07/03/2024 2:19 PM CDT Height 167.6 cm (5' 5.98) 06/18/2024 4:46 PM CD T Body Mass Index 17.84 06/18/2024 4:46 PM CDT Plan of Treatment Not on file Procedures Procedure Name Priority Date/Time Associated Diagnosis Comments EGFR Routine 07/04/2024 11:33 AM CDT Calculus of gallbladder without cholecystitis without obstruction BILIRUBIN, TOTAL AND DIRECT Routine 07/04/2024 11:33 AM CDT Calculus of gallbladder without cholecystitis without obstruction AMYLASE Routine 07/04/2024 11:33 AM CDT Calculus of gallbladder without cholecystitis without obstruction COMPREHENSIVE METABOLIC PANEL Routine 07/04/2024 11:33 AM CDT Calculus of gallbladder without cholecystitis without obstruction HEPATITIS PANEL, ACUTE STAT 06/18/2024 9:35 PM CDT US RUQ ED 06/18/2024 9:06 PM CDT URINALYSIS, MICROSCOPIC ONLY STAT 06/18/2024 7:24 PM CDT URINALYSIS AND REFLEX TO MICROSCOPIC STAT 06/18/2024 7:24 PM CDT POCT HCG, URINE Routine 06/18/2024 7:21 PM CDT EGFR STAT 06/18/2024 7:10 PM CDT DIFFERENTIAL AUTO STAT 06/18/2024 7:1 0 PM CDT LIPASE STAT 06/18/2024 7:10 PM CDT COMPREHENSIVE METABOLIC PANEL STAT 06/18/2024 7:10 PM CDT CBC WITH AUTO DIFFERENTIAL STAT 06/18/2024 7:10 PM CDT ECG 12-LEAD STAT 06/18/2024 5:07 PM CDT POCT HCG, URINE Routine 06/15/2024 9:39 PM CDT URINALYSIS, MICROSCOPIC ONLY STAT 06/15/2024 9:39 PM CDT URINALYSIS AND REFLEX TO MICROSCOPIC STAT 06/15/2024 9:39 PM CDT EGFR STAT 06/15/2024 9:21 PM CDT DIFFERENTIAL AUTO STAT 06/15/2024 9:2 1 PM CDT LIPASE STAT 06/15/2024 9:21 PM CDT COMPREHENSIVE METABOLIC PANEL STAT 06/15/2024 9:21 PM CDT CBC WITH AUTO DIFFERENTIAL STAT 06/15/2024 9:21 PM CDT from Last 3 Months Results * eGFR (07/04/2024 11:33 AM CDT) eGFR >90 >=60 mL/min/1. 73 m2 Comment: Interpretive Data Reference Interval Normal >/= 90 mL/min/1.73m2 Mildly decreased* 60 - 89 mL/min/1.73m2 Mildly to moderately decreased 45 - 59 mL/min/1.73m2 Moderately to severely decreased 30 - 44 mL/min/1.73m2 Severely decreased 15 - 29 mL/min/1.73m2 Kidney Failure < 15 mL/min/1.73m2 *Relative to young adult level Estimated glomerular filtration rate is determined by the 2020 CKD-EPI equation recommended by the National Kidney Foundation (A Unifying Approach to GFR Estimation: Recommendations of the NKF-ASK Task Force on Reassessing the Inclusion of Race in Diagnosing Kidney Disease, JASN 2020). The CKD-EPI equation should not be used for patients with unstable renal function and has not been validated in children and those over 70. Current interpretive data was last reviewed 2020. Blood 07/04/2024 11:3 3 AM CDT 07/04/2024 12:34 PM CDT Drea Gleason MD LAB BLOOD ORDERABLES Final Result [facility] [place] [address] * Bilirubin, total and direct (07/04/2024 11:33 AM CDT) [facility] Bilirubin, total 0.4 0.1 - 1.2 mg/dL Bilirubin, direct 0.3 0.1 - 0.3 mg/dL [facility] Blood Venous blood specimen / Unknown 07/04/2024 11:33 AM CDT 07/04/2024 12:34 PM CDT Drea Gleason MD LAB BLOOD ORDERABLES Final Result [facility] [place] [address] * Amylase (07/04/2024 11:33 AM CDT) [facility] Amylase 81 30 - 99 Units/L Blood Venous blood specimen / Unknown 07/04/2024 11:33 AM CDT 07/04/2024 12:34 PM CDT Drea Gleason MD LAB BLOOD ORDERABLES Final Result Performing Organization Address City/[facility]/[place] [address] * (ABNORMAL) Comprehensive metabolic panel (07/04/2024 11:33 AM CDT) [facility] Sodium 142 135 - 145 mmol/L Potassium, pl 4.1 3.3 - 4.9 mmol/L [facility] Chloride 104 97 - 110 mmol/L [facility] CO2 29 22 - 32 mmol/L [facility] Anion gap 9 2 - 15 mmol/L [facility] BUN 9 6 - 25 mg/dL [facility] Creatinine 0.72 0.60 - 1.10 mg/dL [facility] Glucose 72 70 - 199 mg/dL [facility] Comment: Interpretive Data Fasting glucose >/= 126 mg/dl is diagnostic for diabetes. Fasting is defined as no caloric intake for at least 8 hours. Fasting glucose between 100 mg/dl to 125 mg/dl is diagnostic of prediabetes. In a patient with classic symptoms of hyperglycemia or hyperglycemic crisis, a random glucose >/= 200 mg/dl is diagnostic for diabetes. In the absence of unequivocal hyperglycemia, results should be confirmed by repeat testing. The classification and Diagnosis of Diabetes Diabetes Care 2021; 46: S19-S40. Current interpretive data was last revised 2022. Calcium 9.7 8.5 - 10.3 mg/dL [facility] Bilirubin, total See Comment 0.1 - 1.2 mg/dL [facility] Comment:Credited, duplicate test. Protein, pl 7.5 6.5 - 8.5 g/dL [facility] Albumin 4.5 3.5 - 5.0 g/dL [facility] Alk phos 173(H) 40 - 130 Units/L [facility] ALT 181(H) 7 - 45 Units/L [facility] AST 41 10 - 45 Units/L [facility] Blood Venous blood specimen / Unknown 07/04/2024 11:33 AM CDT 07/04/2024 12:34 PM CDT us Drea Gleason MD LAB BLOOD ORDERABLES Final Result [facility] Department [place] [address] * Hepatitis panel, acute Blood (06/18/2024 9:35 PM CDT) Hep A IgM Nonreactive Nonreactive Hep B core IgM Nonreactive Nonreactive [facility] Hep C Ab Nonreactive Nonreactive [facility] Comment:Antibodies to HCV no t detected. Does NOT exclude the possibility of recent exposure to HCV. Current interpretive data was last revised on 21 HepBsAg Nonreactive Nonreactive [facility] Blood 06/18/2024 9:35 PM CDT 06/18/2024 9:56 PM CDT us Jah Eliseo Nevarez MD LAB MICROBIOLOGY - GENERA L ORDERABLES Final Result [facility] Department [place] [address] * US RUQ (06/18/2024 9:06 PM CDT) Anatomical Region Laterality Modality Abdomen N/A Ultrasound 06/18/2024 9:20 PM CDT Impressions 06/19/2024 8:11 AM CDT 1. Hepatic steatosis. 2. Mobile gallstones without evidence of acute cholecystitis. Dictated by: Lee Ann Mathews MD The radiology attending physician has personally reviewed this study, and had reviewed and/or edited this written report and agrees with it. Electronically signed by: Nolberto Hanks M.D. Narrative 06/19/2024 8:11 AM CDT EXAMINATION: LIMITED ABDOMINAL SONOGRAM HISTORY: Right upper quadrant pain. COMPARISON: None FINDINGS: Liver: The liver is normal in size. The echotexture is normal. The echogenicity is increased. There is no surface nodularity. No focal solid lesions are visualized. Gallbladder: The gallbladder is normal in size. There are gallstones within the gallbladder. There is no gallbladder wall thickening allowing for decompressed state. The gallstone is mobile. No pericholecystic fluid. Bile Duct: There is no intrahepatic bile duct dilatation. The diameter of the common duct is 3 mm in the proximal segment and 4 mm in the mid segment and obscured in the distal segment. Right Kidney: There is no hydronephrosis in the visualized portions of the right kidney. Pancreas: The visualized portions of the pancreas demonstrate no focal lesions. Procedure Note Nolberto Hanks MD PhD - 06/19/2024 EXAMINATION: LIMITED ABDOMINAL SONOGRAM HISTORY: Right upper quadrant pain. COMPARISON: None FINDINGS: Liver: The liver is normal in size. The echotexture is normal. The echogenicity is increased. There is no surface nodularity. No focal solid lesions are visualized. Gallbladder: The gallbladder is normal in size. There are gallstones within the gallbladder. There is no gallbladder wall thickening allowing for decompressed state. The gallstone is mobile. No pericholecystic fluid. Bile Duct: There is no intrahepatic bile duct dilatation. The diameter of the common duct is 3 mm in the proximal segment and 4 mm in the mid segment and obscured in the distal segment. Right Kidney: There is no hydronephrosis in the visualized portions of the right kidney. Pancreas: The visualized portions of the pancreas demonstrate no focal lesions. IMPRESSION: 1. Hepatic steatosis. 2. Mobile gallstones without evidence of acute cholecystitis. Dictated by: Lee Ann Mathews MD The radiology attending physician has personally reviewed this study, and had reviewed and/or edited this written report and agrees with it. Electronically signed by: Nolberto Hanks M.D. us Jah Eliseo Nevarez MD IMG US PROCEDURES Final R esult * (ABNORMAL) Urinalysis reflex to microscopic (06/18/2024 7:24 PM CDT) Color, ur Yellow Yellow Clarity, ur Cloudy(A) Clear [facility] Specific gravity, ur 1.013 1.003 - 1.030 [facility] pH, urine 6.0 [facility] Comment: Interpretive Data U rine pH is affected by diet, medications, systemic acid-base disturbances, and renal tubular function. pH may affect urinary stone formation. For example, urine pH below 6.0 may help reduce the tendency for calcium phosphate stones and pH greater than 6.0 may reduce the tendency for uric acid stone formation. Source: [employer] Current Interpretive Data was last revised on 2017 Protein, ur ql Negative Negative [facility] Glucose, ur ql Negative Negative [facility] Ketones, ur 1+(A) Negative [facility] Bilirubin, ur 1+(A) Negative [facility] Blood, ur 2+(A) Negative [facility] Urobilinogen, ur <2.0 <2.0 mg/dL [facility] Nitrite, ur Negative Negative [facility] Leukocyte esterase, ur Trace(A) Negative [facility] UA reflex comment Reflex to microscopic UA will be performed. [facility] Urine 06/18/2024 7:24 PM CDT 06/18/2024 7:53 PM CDT Glenna Pratt MD LAB URINE ORDERABLES Sindhu l Result Performing Organization Address [facility] de Phone Number [facility] [place] [address] * (ABNORMAL) Urinalysis, microscopic only (06/18/2024 7:24 PM CDT) WBC, ur 0-5 0 - 5 /HPF RBC, ur >50(A) 0 - 2 /HPF [facility] Epithelial cells, squamous, ur 1-5 0 - 5 /HPF [facility] Bacteria, ur 3+(A) [facility] Mucous, ur Present(A) [facility] Amorphous crystals, ur Trace(A) [facility] Urine 06/18/2024 7:24 PM CDT 06/18/2024 7:53 PM CDT Lamin Umaña MD LAB URINE ORDERABLES F inal Result Performing Organization Address [facility] de Phone Number [facility] Department [place] [address] * POCT hCG, urine (06/18/2024 7:21 PM CDT) HCG, ur, POC Negative Negative Lot Number [id number] QC Backgroud Clear Acceptable QC Control Line Acceptable Urine 06/18/2024 7:21 PM CDT Glenna Pratt MD POINT OF CARE TEST ORDERA BLES Final Result * eGFR (06/18/2024 7:10 PM CDT) [facility] eGFR >90 >=60 mL/min/1. 73 m2 Comment: Interpretive Data Reference Interval Normal >/= 90 mL/min/1.73m2 Mildly decreased* 60 - 89 mL/min/1.73m2 Mildly to moderately decreased 45 - 59 mL/min/1.73m2 Moderately to severely decreased 30 - 44 mL/min/1.73m2 Severely decreased 15 - 29 mL/min/1.73m2 Kidney Failure < 15 mL/min/1.73m2 *Relative to young adult level Estimated glomerular filtration rate is determined by the 2020 CKD-EPI equation recommended by the National Kidney Foundation (A Unifying Approach to GFR Estimation: Recommendations of the NKF-ASK Task Force on Reassessing the Inclusion of Race in Diagnosing Kidney Disease, JASN 2020). The CKD-EPI equation should not be used for patients with unstable renal function and has not been validated in children and those over 70. Current interpretive data was last reviewed 2020. Blood 06/18/2024 7:10 PM CDT 06/18/2024 7:29 PM CDT Lamin Umaña MD LAB BLOOD ORDERABLES F inal Result [facility] Department [place] [address] * Differential, auto (06/18/2024 7:10 PM CDT) [facility] Neutrophil abs 4.75 1.50 - 6.50 K/cumm Imm gran abs 0.02 0.00 - 0.10 K/cumm [facility] Lymphocyte abs 2.54 0.80 - 3.30 K/cumm [facility] Monocyte abs 0.35 0.20 - 0.80 K/cumm [facility] Eosinophil abs 0.04 0.00 - 0.50 K/cumm [facility] Basophil abs 0.02 0.00 - 0.10 K/cumm [facility] Neutrophil pct 61.5 % [facility] Comment: Interpretive Data Percent cell count reference ranges are not reported, since discordance with absolute values may lead to misinterpretation of CBC data. Current Interpretive Data was last revised on 2017. Imm gran pct 0.3 % [facility] Comment: Interpretive Data Percent cell count reference ranges are not reported, since discordance with absolute values may lead to misinterpretation of CBC data. Current Interpretive Data was last revised on 2017. Lymphocyte pct 32.9 % [facility] Comment: Interpretive Data Percent cell count reference ranges are not reported, since discordance with absolute values may lead to misinterpretation of CBC data. Current Interpretive Data was last revised on 2017. Monocyte pct 4.5 % [facility] Comment: Interpretive Data Percent cell count reference ranges are not reported, since discordance with absolute values may lead to misinterpretation of CBC data. Current Interpretive Data was last revised on 2017. Eosinophil pct 0.5 % [facility] Comment: Interpretive Data Percent cell count reference ranges are not reported, since discordance with absolute values may lead to misinterpretation of CBC data. Current Interpretive Data was last revised on 2017. Basophil pct 0.3 % [facility] Comment: Interpretive Data Percent cell count reference ranges are not reported, since discordance with absolute values may lead to misinterpretation of CBC data. Current Interpretive Data was last revised on 2017. Blood 06/18/2024 7:10 PM CDT 06/18/2024 7:29 PM CDT Lamin Umaña MD LAB BLOOD ORDERABLES F inal Result [facility] Department of Laboratories [place], [place] [id number] * (ABNORMAL) CBC with auto differential (06/18/2024 7:10 PM CDT) WBC 7.72 3.80 - 9.90 K/cumm Hgb 12.3 11.9 - 15.5 g/dL [facility] Hct 36.7 35.6 - 45.5 % [facility] Plt 285 150 - 400 K/cumm [facility] MPV 11.3 9.1 - 12.3 fL [facility] RBC 4.85 3.90 - 5.20 M/cumm [facility] MCV 75.7(L) 81.3 - 96.4 fL [facility] MCH 25.4(L) 27.1 - 33.3 pg [facility] MCHC 33.5 32.3 - 35.7 g/dL [facility] RDW CV 15.5(H) 11.1 - 14.9 % [facility] RDW SD 41.7 35.7 - 48.1 fL [facility] NRBC abs 0.00 0.00 - 0.01 K/cumm [facility] Blood Venous blood specimen / Unknown 06/18/2024 7:10 PM CDT 06/18/2024 7:29 PM CDT Glenna Pratt MD LAB BLOOD ORDERABLES Sindhu l Result Performing Organization Address City/[facility]/ZIP Co de Phone Number [facility] Department [place] [address] * Lipase (06/18/2024 7:10 PM CDT) [facility] Lipase 63 10 - 99 Units/L Blood Venous blood specimen / Unknown 06/18/2024 7:10 PM CDT 06/18/2024 7:29 PM CDT Glenna Pratt MD LAB BLOOD ORDERABLES Sindhu l Result [facility] [place] [address] * (ABNORMAL) Comprehensive metabolic panel (06/18/2024 7:10 PM CDT) [facility] Sodium 141 135 - 145 mmol/L Potassium, pl 3.8 3.3 - 4.9 mmol/L [facility] Chloride 102 97 - 110 mmol/L [facility] CO2 24 22 - 32 mmol/L [facility] Anion gap 15 2 - 15 mmol/L [facility] BUN 6 6 - 25 mg/dL [facility] Creatinine 0.75 0.60 - 1.10 mg/dL [facility] Glucose 80 70 - 199 mg/dL [facility] Comment: Interpretive Data Fasting glucose >/= 126 mg/dl is diagnostic for diabetes. Fasting is defined as no caloric intake for at least 8 hours. Fasting glucose between 100 mg/dl to 125 mg/dl is diagnostic of prediabetes. In a patient with classic symptoms of hyperglycemia or hyperglycemic crisis, a random glucose >/= 200 mg/dl is diagnostic for diabetes. In the absence of unequivocal hyperglycemia, results should be confirmed by repeat testing. The classification and Diagnosis of Diabetes Diabetes Care 202; 46: S19-S40. Current interpretive data was last revised 2022. Calcium 9.6 8.5 - 10.3 mg/dL [facility] Bilirubin, total 1.8(H) 0.1 - 1.2 mg/dL [facility] Comment:Reviewed Protein, pl 8.2 6.5 - 8.5 g/dL [facility] Albumin 4.6 3.5 - 5.0 g/dL [facility] Alk phos 185(H) 40 - 130 Units/L [facility] Comment:Reviewed ALT 570(H) 7 - 45 Units/L [facility] Comment:Reviewed AST 237(H) 10 - 45 Units/L [facility] Comment:Reviewed Blood 06/18/2024 7:10 PM CDT 06/18/2024 7:29 PM CDT us Glenna Pratt MD LAB BLOOD ORDERABLES Edit ed Result - Final [facility] [place] [address] * ECG 12-LEAD (06/18/2024 5:07 PM CDT) Narrative [facility] - 06/18/2024 5:07 PM CDT Glenna Pratt MD 06/18/2024 5:07 PM ECG 12 lead Date/Time: 06/18/2024 5:07 PM Performed by: Glenna Pratt MD Authorized by: Jason Houston MD Rate: ECG rate: 72 ECG rate assessment: normal Rhythm: Rhythm: sinus rhythm Ectopy: Ectopy: none QRS: QRS axis: Normal QRS intervals: Normal Conduction: Conduction: normal ST segments: ST segments: Normal T waves: T waves: non-specific Previous ECG: Previous ECG: Unavailable Interpretation: Interpretation: No significant change Recommended Follow-up: Recommended follow up: further workup in the ED us Glenna Pratt MD ECG ORDERABLES Final Res ult [facility] * (ABNORMAL) Urinalysis reflex to microscopic (06/15/2024 9:39 PM CDT) Color, ur Straw Yellow Clarity, ur Cloudy(A) Clear [facility] Specific gravity, ur 1.021 1.003 - 1.030 [facility] pH, urine 8.0 [facility] Comment: Interpretive Data U rine pH is affected by diet, medications, systemic acid-base disturbances, and renal tubular function. pH may affect urinary stone formation. For example, urine pH below 6.0 may help reduce the tendency for calcium phosphate stones and pH greater than 6.0 may reduce the tendency for uric acid stone formation. Source: [facility] Current Interpretive Data was last revised on 2017 Protein, ur ql 1+(A) Negative [facility] Glucose, ur ql Negative Negative [facility] Ketones, ur 1+(A) Negative [facility] Bilirubin, ur Negative Negative [facility] Blood, ur 3+(A) Negative [facility] Urobilinogen, ur <2.0 <2.0 mg/dL [facility] Nitrite, ur Negative Negative [facility] Leukocyte esterase, ur 2+(A) Negative [facility] UA reflex comment Reflex to microscopic UA will be performed. [facility] Urine 06/15/2024 9:39 PM CDT 06/15/2024 9:43 PM CDT Rod Cardenas MD LAB URINE ORDERABLES Final Re sult Performing Organization Address [facility] Co de Phone Number [facility] [place] [address] * (ABNORMAL) Urinalysis, microscopic only (06/15/2024 9:39 PM CDT) [facility] WBC, ur 6-10(A) 0 - 5 /HPF RBC, ur >50(A) 0 - 2 /HPF [facility] Epithelial cells, squamous, ur 1-5 0 - 5 /HPF [facility] Bacteria, ur Trace(A) [facility] Mucous, ur Present(A) [facility] Urine 06/15/2024 9:39 PM CDT 06/15/2024 9:43 PM CDT Rod Cardenas MD LAB URINE ORDERABLES Final Re sult Performing Organization Address [facility] de Phone Number [facility] [place] [address] * POCT hCG, urine (06/15/2024 9:39 PM CDT) [facility] HCG, ur, POC Negative Negative Lot Number [id number] QC Backgroud Clear Acceptable QC Control Line Acceptable Urine 06/15/2024 9:39 PM CDT Rod Cardenas MD POINT OF CARE TEST ORDERABLES Final Result * eGFR (06/15/2024 9:21 PM CDT) [facility] eGFR >90 >=60 mL/min/1. 73 m2 Comment: Interpretive Data Reference Interval Normal >/= 90 mL/min/1.73m2 Mildly decreased* 60 - 89 mL/min/1.73m2 Mildly to moderately decreased 45 - 59 mL/min/1.73m2 Moderately to severely decreased 30 - 44 mL/min/1.73m2 Severely decreased 15 - 29 mL/min/1.73m2 Kidney Failure < 15 mL/min/1.73m2 *Relative to young adult level Estimated glomerular filtration rate is determined by the 2020 CKD-EPI equation recommended by the National Kid[employer] (A Unifying Approach to GFR Estimation: Recommendations of the NKF-ASK Task Force on Reassessing the Inclusion of Race in Diagnosing Kidney Disease, JASN 202). The CKD-EPI equation should not be used for patients with unstable renal function and has not been validated in children and those over 70. Current interpretive data was last reviewed 2020. Blood 06/15/2024 9:21 PM CDT 06/15/2024 9:30 PM CDT us Karma Kumar MD LAB BLOOD ORDERABLES Final Result [facility] [place] [address] * (ABNORMAL) Differential, auto (06/15/2024 9:21 PM CDT) Neutrophil abs 9.19(H) 1.50 - 6.50 K/cumm Imm gran abs 0.05 0.00 - 0.10 K/cumm [facility] Lymphocyte abs 3.16 0.80 - 3.30 K/cumm [facility] Monocyte abs 0.52 0.20 - 0.80 K/cumm [facility] Eosinophil abs 0.03 0.00 - 0.50 K/cumm [facility] Basophil abs 0.03 0.00 - 0.10 K/cumm [facility] Neutrophil pct 70.9 % [facility] Comment: Interpretive Data Percent cell count reference ranges are not reported, since discordance with absolute values may lead to misinterpretation of CBC data. Current Interpretive Data was last revised on 2017. Imm gran pct 0.4 % [facility] Comment: Interpretive Data Percent cell count reference ranges are not reported, since discordance with absolute values may lead to misinterpretation of CBC data. Current Interpretive Data was last revised on 2017. Lymphocyte pct 24.3 % [facility] Comment: Interpretive Data Percent cell count reference ranges are not reported, since discordance with absolute values may lead to misinterpretation of CBC data. Current Interpretive Data was last revised on 2017. Monocyte pct 4.0 % [facility] Comment: Interpretive Data Percent cell count reference ranges are not reported, since discordance with absolute values may lead to misinterpretation of CBC data. Current Interpretive Data was last revised on 2017. Eosinophil pct 0.2 % [facility] Comment: Interpretive Data Percent cell count reference ranges are not reported, since discordance with absolute values may lead to misinterpretation of CBC data. Current Interpretive Data was last revised on 2017. Basophil pct 0.2 % [facility] Comment: Interpretive Data Percent cell count reference ranges are not reported, since discordance with absolute values may lead to misinterpretation of CBC data. Current Interpretive Data was last revised on 2017. Blood 06/15/2024 9:21 PM CDT 06/15/2024 9:30 PM CDT us Karma Kumar MD LAB BLOOD ORDERABLES Final Result [facility] [place] [address] * (ABNORMAL) CBC with auto differential (06/15/2024 9:21 PM CDT) WBC 12.98(H) 3.80 - 9.90 K/cumm Hgb 12.8 11.9 - 15.5 g/dL [facility] Hct 37.7 35.6 - 45.5 % [facility] Plt 324 150 - 400 K/cumm [facility] MPV 10.9 9.1 - 12.3 fL [facility] RBC 4.99 3.90 - 5.20 M/cumm [facility] MCV 75.6(L) 81.3 - 96.4 fL [facility] MCH 25.7(L) 27.1 - 33.3 pg [facility] MCHC 34.0 32.3 - 35.7 g/dL [facility] RDW CV 14.9 11.1 - 14.9 % [facility] RDW SD 40.0 35.7 - 48.1 fL [facility] NRBC abs 0.00 0.00 - 0.01 K/cumm [facility] Blood Venous blood specimen / Unknown 06/15/2024 9:21 PM CDT 06/15/2024 9:30 PM CDT Rod Cardenas MD LAB BLOOD ORDERABLES Final Re sult Performing Organization Address City/[facility]/ZIP Co de Phone Number [facility] [place] [address] * Lipase (06/15/2024 9:21 PM CDT) [facility] Lipase 53 10 - 99 Units/L Blood Venous blood specimen / Unknown 06/15/2024 9:21 PM CDT 06/15/2024 9:30 PM CDT Rod Cardenas MD LAB BLOOD ORDERABLES Final Re sult Performing Organization Address [facility] de Phone Number [facility] [place] [address] * (ABNORMAL) Comprehensive metabolic panel (06/15/2024 9:21 PM CDT) [facility] Sodium 144 135 - 145 mmol/L Potassium, pl 3.5 3.3 - 4.9 mmol/L [facility] Chloride 105 97 - 110 mmol/L [facility] CO2 25 22 - 32 mmol/L [facility] Anion gap 14 2 - 15 mmol/L [facility] BUN 12 6 - 25 mg/dL [facility] Creatinine 0.82 0.60 - 1.10 mg/dL [facility] Glucose 112 70 - 199 mg/dL [facility] Comment: Interpretive Data Fasting glucose >/= 126 mg/dl is diagnostic for diabetes. Fasting is defined as no caloric intake for at least 8 hours. Fasting glucose between 100 mg/dl to 125 mg/dl is diagnostic of prediabetes. In a patient with classic symptoms of hyperglycemia or hyperglycemic crisis, a random glucose >/= 200 mg/dl is diagnostic for diabetes. In the absence of unequivocal hyperglycemia, results should be confirmed by repeat testing. The classification and Diagnosis of Diabetes Diabetes Care 2021; 46: S19-S40. Current interpretive data was last revised 2022. Calcium 9.5 8.5 - 10.3 mg/dL [facility] Bilirubin, total 0.3 0.1 - 1.2 mg/dL [facility] Protein, pl 8.0 6.5 - 8.5 g/dL [facility] Albumin 4.8 3.5 - 5.0 g/dL [facility] Alk phos 77 40 - 130 Units/L [facility] ALT 40 7 - 45 Units/L [facility] AST 64(H) 10 - 45 Units/L [facility] Blood 06/15/2024 9:21 PM CDT 06/15/2024 9:30 PM CDT Rod Cardenas MD LAB BLOOD ORDERABLES Final Re sult [facility] [place] [address] from Last 3 Months Insurance [employer] OOS [employer] OOS Care Teams Assistant Finance Manager Relationship Specialty Start Date End Date No, Physician PCP - General 11/25/21
--- OUTSIDE RECORDS SUMMARY | 2024-07-10 12:14 | XMS_ITS | Clinical Summary ---
Author Organization [facility] Address [address] [place] [id number] Care Team Providers Care Assistant Manager [employer] Name Role Phone No, Physician Primary Care Provider [phone] Allergies No known active allergies Medications vit 25-yxao-zwhff-d vieira 27mg iron- 800 mcg-250 mg capsule [...] 06/16/2024 Active Problems No known active problems Encounters Date Type Department Care Team Description 07/04/2024 11:25 AM CDT Lab [facility] [address] [place] [address] [place] [address] Calculus of gallbladder without cholecystitis without obstruction 07/03/2024 2:15 PM CDT Office [facility] [address] [place] [address] Health [address] [place] [address] Calculus of gallbladder without cholecystitis without obstruction 06/18/2024 7:15 PM CDT - 06/18/2024 10:04 PM CDT Emergency [facility] [address] [place] [address] Glenna Pratt MD Epigastric pain (Primary Dx); Elevated LFTs; Calculus of gallbladder without cholecystitis without obstruction Discharge Disposition: Discharge to home or self care 06/18/2024 Telephone [facility] [address] [place] [address] Ruddy Robbins RN 06/15/2024 9:22 PM CDT - 06/16/2024 1:04 AM CDT Emergency [facility] [address] [place] [address] Rod Cardenas MD Odom, Jeannie Otero MD Abdominal pain, epigastric (Primary Dx) Discharge Disposition: Discharge to home or self care from Last 3 Months Surgical History Surgery Date Site/Laterality Comments NECK SURGERY 2009 Medical History Medical History Date Comments Anxiety Family History Medical History Relation Name Comments No Known Problems Brother No Known Problems Father No Known Problems Mother Relation Name Status Comments Brother Alive Father Alive Mother Alive Social History Tobacco Use Types Packs/Day Years [...] on file Sexual Orientation Not on file Obstetrics History Para Term AB IAB SAB Ectopic Multiple Livin g Live Births 1 Date Outcome GA Total Labor Labor/2nd/3rd Weight Sex Type Anes PTL Minerva A1 A5 Name Clin Last Filed Vital Signs Vital Sign Reading [...] 06/18/2024 4:46 PM CDT Plan of Treatment Health Maintenance Due Date Last Done Comments Cervical Cancer Screening 1998 Depression Screening 1998 Regular Well Visit/Exam 18-64 2016 DTaP/Tdap/Td Vaccine (7 - Td or Tdap) 10/07/2020 10/07/2010, 04/14/2003, 04/10/2000, Additional history exists Covid-19 Vaccine (2023-2 5 season) 2023 12/08/2020, 10/18/2020 Influenza Vaccine (Season Ended) 2024 01/07/2015, 10/29/2013, 12/05/2010, Additional history exists Hepatitis B Screening Completed 07/18/1999 , 02/07/1999, 01/02/1999 Pneumococcal vaccine <65 Completed 04/10/2000, 01/05 Varicella Vaccines Completed 10/29/2013, 01/24/2000 HPV Vaccines Completed 02/13/2018, 08/05, 10/29/2013, Additional history exists Hepatitis C Screening Completed 06/18/2024 Procedures Procedure Name Priority Date/Time Associated Diagnosis [...] 3 AM CDT 07/04/2024 12:34 PM CDT us Drea Gleason MD LAB BLOOD ORDERABLES Final Result [facility] Department [place] [address] * Bilirubin, total and direct (07/04/2024 11:33 AM CDT) Bilirubin, total 0.4 0.1 - 1.2 mg/dL Bilirubin, direct 0.3 0.1 - 0.3 mg/dL [facility] Blood Venous blood specimen / Unknown 07/04/2024 11:33 AM CDT 07/04/2024 12:34 PM CDT us Drea Gleason MD LAB BLOOD ORDERABLES Final Result [facility] Department [place] [address] * Amylase (07/04/2024 11:33 AM CDT) Pathologist [facility] Amylase 81 30 - 99 Units/L Blood Venous blood specimen / Unknown 07/04/2024 11:33 AM CDT 07/04/2024 12:34 PM CDT Drea Gleason MD LAB BLOOD ORDERABLES Final Result Performing Organization Address [facility] de Phone Number [facility] Department [place] [address] * (ABNORMAL) Comprehensive metabolic panel (07/04/2024 11:33 AM CDT) [facility] Sodium 142 135 - 145 mmol/L Potassium, pl 4.1 3.3 - 4.9 mmol/L [facility] Chloride 104 97 - 110 mmol/L [facility] CO2 29 22 - 32 mmol/L [facility] Anion gap 9 2 - 15 mmol/L [facility] BUN 9 6 - 25 mg/dL [facility] Creatinine 0.72 0.60 - 1.10 mg/dL [facility] Glucose 72 70 - 199 mg/dL [facility] Comment: Interpretive Data Fasting glucose >/= 126 [...] 2022. Calcium 9.7 8.5 - 10.3 mg/dL [facility] Bilirubin, total See Comment 0.1 - 1.2 mg/dL [facility] Comment:Credited, duplicate test. Protein, pl 7.5 6.5 - 8.5 g/dL [facility] Albumin 4.5 3.5 - 5.0 g/dL [facility] Alk phos 173(H) 40 - 130 Units/L [facility] ALT 181(H) 7 - 45 Units/L [facility] AST 41 10 - 45 Units/L [facility] Blood Venous blood specimen / Unknown 07/04/2024 11:33 AM CDT 07/04/2024 12:34 PM CDT us Drea Gleason MD LAB BLOOD ORDERABLES Final Result Performing Organization Address City/[facility]/ZIP Co de Phone Number [facility] Department [place] [address] * Hepatitis panel, acute Blood (06/18/2024 9:35 PM CDT) Hep A IgM Nonreactive Nonreactive Hep B core IgM Nonreactive Nonreactive [facility] Hep C Ab Nonreactive Nonreactive [facility] Comment:Antibodies to HCV no t detected. Does NOT exclude the possibility of recent exposure to HCV. Current interpretive data was last revised on 21 HepBsAg Nonreactive Nonreactive [facility] Blood 06/18/2024 9:35 PM CDT 06/18/2024 9:56 PM CDT us Jah Nevarez MD LAB MICROBIOLOGY - GENERA L ORDERABLES Final Result [facility] Department [place] [address] * US RUQ (06/18/2024 9:06 PM CDT) [...] signed by: Nolberto Hanks M.D. us Jah Nevarez MD IM US PROCEDURES Final R esult * (ABNORMAL) Urinalysis reflex to microscopic (06/18/2024 7:24 PM CDT) Color, ur Yellow Yellow Clarity, ur Cloudy(A) Clear [facility] Specific gravity, ur 1.013 1.003 - 1.030 [facility] pH, urine 6.0 [facility] Comment: Interpretive Data U rine pH is affected by diet, medications, systemic acid-base disturbances, and renal tubular function. pH may affect urinary stone formation. For example, urine pH below 6.0 may help reduce the tendency for calcium phosphate stones and pH greater than 6.0 may reduce the tendency for uric acid stone formation. Source: [facility] [employer] Current Interpretive Data was last revised on 2017 Protein, ur ql Negative Negative [facility] Glucose, ur ql Negative Negative [facility] Ketones, ur 1+(A) Negative [facility] Bilirubin, ur 1+(A) Negative [facility] Blood, ur 2+(A) Negative [facility] Urobilinogen, ur <2.0 <2.0 mg/dL [facility] Nitrite, ur Negative Negative [facility] Leukocyte esterase, ur Trace(A) Negative [facility] UA reflex comment Reflex to microscopic UA will be performed. [facility] Urine 06/18/2024 7:24 PM CDT 06/18/2024 7:53 PM CDT us Glenna Pratt MD LAB URINE ORDERABLES Sindhu michelle Result [facility] Department [place] [address] * (ABNORMAL) Urinalysis, microscopic only (06/18/2024 7:24 PM CDT) Pathologist [facility] WBC, ur 0-5 0 - 5 /HPF RBC, ur >50(A) 0 - 2 /HPF [facility] Epithelial cells, squamous, ur 1-5 0 - 5 /HPF [facility] Bacteria, ur 3+(A) [facility] Mucous, ur Present(A) [facility] Amorphous crystals, ur Trace(A) [facility] Urine 06/18/2024 7:24 PM CDT 06/18/2024 7:53 PM CDT Lamin Umaña MD LAB URINE ORDERABLES F inal Result [facility] Department [place] [address] * POCT hCG, urine (06/18/2024 7:21 PM CDT) Pathologist [facility] HCG, ur, POC Negative Negative Lot Number [id number] QC Backgroud Clear Acceptable QC Control Line Acceptable Urine 06/18/2024 7:21 PM CDT Glenna Pratt MD POINT OF CARE TEST ORDERA BLES Final Result * eGFR (06/18/2024 7:10 PM CDT) [facility] eGFR >90 >=60 mL/min/1. 73 m2 [...] Inclusion of Race in Diagnosing Kidney Disease, JOHN 2020). The CKD-EPI equation should not be used for patients with unstable renal function and has not been validated in children and those over 70. Current interpretive data was last reviewed 2020. Blood 06/18/2024 7:10 PM CDT 06/18/2024 7:29 PM CDT Lamin Umaña MD LAB BLOOD ORDERABLES F inal Result [facility] Department [place] [address] * Differential, auto (06/18/2024 7:10 PM CDT) Neutrophil abs 4.75 1.50 - 6.50 K/cumm Imm gran abs 0.02 0.00 - 0.10 K/cumm [facility] Lymphocyte abs 2.54 0.80 - 3.30 K/cumm [facility] Monocyte abs 0.35 0.20 - 0.80 K/cumm [facility] Eosinophil abs 0.04 0.00 - 0.50 K/cumm [facility] Basophil abs 0.02 0.00 - 0.10 K/cumm [facility] Neutrophil pct 61.5 % [facility] Comment: Interpretive Data Percent cell count reference ranges are not reported, since discordance with absolute values may lead to misinterpretation of CBC data. Current Interpretive Data was last revised on 2017. Imm gran pct 0.3 % [facility] Comment: Interpretive Data Percent cell count reference ranges are not reported, since discordance with absolute values may lead to misinterpretation of CBC data. Current Interpretive Data was last revised on 2017. Lymphocyte pct 32.9 % [facility] Comment: Interpretive Data Percent cell count reference ranges are not reported, since discordance with absolute values may lead to misinterpretation of CBC data. Current Interpretive Data was last revised on 2017. Monocyte pct 4.5 % [facility] Comment: Interpretive Data Percent cell count reference ranges are not reported, since discordance with absolute values may lead to misinterpretation of CBC data. Current Interpretive Data was last revised on 2017. Eosinophil pct 0.5 % [facility] Comment: Interpretive Data Percent cell count reference ranges are not reported, since discordance with absolute values may lead to misinterpretation of CBC data. Current Interpretive Data was last revised on 2017. Basophil pct 0.3 % [facility] Comment: Interpretive Data Percent cell count reference ranges are not reported, since discordance with absolute values may lead to misinterpretation of CBC data. Current Interpretive Data was last revised on 2017. Blood 06/18/2024 7:10 PM CDT 06/18/2024 7:29 PM CDT Lamin Umaña MD LAB BLOOD ORDERABLES F inal Result [facility] Department [place] [address] * (ABNORMAL) CBC with auto differential (06/18/2024 7:10 PM CDT) WBC 7.72 3.80 - 9.90 K/cumm Hgb 12.3 11.9 - 15.5 g/dL [facility] Hct 36.7 35.6 - 45.5 % [facility] Plt 285 150 - 400 K/cumm [facility] MPV 11.3 9.1 - 12.3 fL [facility] RBC 4.85 3.90 - 5.20 M/cumm [facility] MCV 75.7(L) 81.3 - 96.4 fL [facility] MCH 25.4(L) 27.1 - 33.3 pg [facility] MCHC 33.5 32.3 - 35.7 g/dL [facility] RDW CV 15.5(H) 11.1 - 14.9 % [facility] RDW SD 41.7 35.7 - 48.1 fL [facility] NRBC abs 0.00 0.00 - 0.01 K/cumm [facility] Blood Venous blood specimen / Unknown 06/18/2024 7:10 PM CDT 06/18/2024 7:29 PM CDT us Glenna Pratt MD LAB BLOOD ORDERABLES Sindhu l Result Performing Organization Address City/[facility]/ZIP Co de Phone Number [facility] Department [place] [address] * Lipase (06/18/2024 7:10 PM CDT) [facility] Lipase 63 10 - 99 Units/L Blood Venous blood specimen / Unknown 06/18/2024 7:10 PM CDT 06/18/2024 7:29 PM CDT Glenna Pratt MD LAB BLOOD ORDERABLES Sindhu l Result Performing Organization Address [facility] de Phone Number [facility] Department [place] [address] * (ABNORMAL) Comprehensive metabolic panel (06/18/2024 7:10 PM CDT) [facility] Sodium 141 135 - 145 mmol/L Potassium, pl 3.8 3.3 - 4.9 mmol/L [facility] Chloride 102 97 - 110 mmol/L [facility] CO2 24 22 - 32 mmol/L [facility] Anion gap 15 2 - 15 mmol/L [facility] BUN 6 6 - 25 mg/dL [facility] Creatinine 0.75 0.60 - 1.10 mg/dL [facility] Glucose 80 70 - 199 mg/dL [facility] Comment: Interpretive Data Fasting glucose >/= 126 [...] 2022. Calcium 9.6 8.5 - 10.3 mg/dL [facility] Bilirubin, total 1.8(H) 0.1 - 1.2 mg/dL [facility] Comment:Reviewed Protein, pl 8.2 6.5 - 8.5 g/dL [facility] Albumin 4.6 3.5 - 5.0 g/dL [facility] Alk phos 185(H) 40 - 130 Units/L [facility] Comment:Reviewed ALT 570(H) 7 - 45 Units/L [facility] Comment:Reviewed AST 237(H) 10 - 45 Units/L [facility] Comment:Reviewed Blood 06/18/2024 7:10 PM CDT 06/18/2024 7:29 PM CDT Glenna Pratt MD LAB BLOOD ORDERABLES Edit ed Result - Final Performing Organization Address [facility] Co de Phone Number [facility] Department [place] [address] * ECG 12-LEAD (06/18/2024 5:07 PM CDT) Narrative [facility] - 06/18/2024 5:07 PM CDT Glenna [...] follow up: further workup in the ED Glenna Pratt MD ECG ORDERABLES Final Res ult [facility] * (ABNORMAL) Urinalysis reflex to microscopic (06/15/2024 9:39 PM CDT) Color, ur Straw Yellow Clarity, ur Cloudy(A) Clear [facility] Specific gravity, ur 1.021 1.003 - 1.030 [facility] pH, urine 8.0 [facility] Comment: Interpretive Data U rine pH is affected by diet, medications, systemic acid-base disturbances, and renal tubular function. pH may affect urinary stone formation. For example, urine pH below 6.0 may help reduce the tendency for calcium phosphate stones and pH greater than 6.0 may reduce the tendency for uric acid stone formation. Source: [facility] [employer] Current Interpretive Data was last revised on 2017 Protein, ur ql 1+(A) Negative [facility] Glucose, ur ql Negative Negative [facility] Ketones, ur 1+(A) Negative [facility] Bilirubin, ur Negative Negative [facility] Blood, ur 3+(A) Negative [facility] Urobilinogen, ur <2.0 <2.0 mg/dL [facility] Nitrite, ur Negative Negative [facility] Leukocyte esterase, ur 2+(A) Negative [facility] UA reflex comment Reflex to microscopic UA will be performed. [facility] Urine 06/15/2024 9:39 PM CDT 06/15/2024 9:43 PM CDT us Rod Cardenas MD LAB URINE ORDERABLES Final Re sult [facility] Department [place] [address] * (ABNORMAL) Urinalysis, microscopic only (06/15/2024 9:39 PM CDT) WBC, ur 6-10(A) 0 - 5 /HPF RBC, ur >50(A) 0 - 2 /HPF [facility] Epithelial cells, squamous, ur 1-5 0 - 5 /HPF [facility] Bacteria, ur Trace(A) [facility] Mucous, ur Present(A) [facility] Urine 06/15/2024 9:39 PM CDT 06/15/2024 9:43 PM CDT Rod Cardenas MD LAB URINE ORDERABLES Final Re sult [facility] Department [place] [address] * POCT hCG, urine (06/15/2024 9:39 PM CDT) HCG, ur, POC Negative Negative Lot Number [id number] QC Backgroud Clear Acceptable QC Control Line Acceptable Urine 06/15/2024 9:39 PM CDT Result [facility] Rod Cardenas MD POINT OF CARE TEST ORDERABLES Final Result * eGFR (06/15/2024 9:21 PM CDT) eGFR >90 >=60 mL/min/1. 73 m2 [...] Kumar MD LAB BLOOD ORDERABLES Final Result [facility] Department [place] [address] * (ABNORMAL) Differential, auto (06/15/2024 9:21 PM CDT) Neutrophil abs 9.19(H) 1.50 - 6.50 K/cumm Imm gran abs 0.05 0.00 - 0.10 K/cumm [facility] Lymphocyte abs 3.16 0.80 - 3.30 K/cumm [facility] Monocyte abs 0.52 0.20 - 0.80 K/cumm [facility] Eosinophil abs 0.03 0.00 - 0.50 K/cumm [facility] Basophil abs 0.03 0.00 - 0.10 K/cumm [facility] Neutrophil pct 70.9 % [facility] Comment: Interpretive Data Percent cell count reference ranges are not reported, since discordance with absolute values may lead to misinterpretation of CBC data. Current Interpretive Data was last revised on 2017. Imm gran pct 0.4 % [facility] Comment: Interpretive Data Percent cell count reference ranges are not reported, since discordance with absolute values may lead to misinterpretation of CBC data. Current Interpretive Data was last revised on 2017. Lymphocyte pct 24.3 % [facility] Comment: Interpretive Data Percent cell count reference ranges are not reported, since discordance with absolute values may lead to misinterpretation of CBC data. Current Interpretive Data was last revised on 2017. Monocyte pct 4.0 % [facility] Comment: Interpretive Data Percent cell count reference ranges are not reported, since discordance with absolute values may lead to misinterpretation of CBC data. Current Interpretive Data was last revised on 2017. Eosinophil pct 0.2 % [facility] Comment: Interpretive Data Percent cell count reference ranges are not reported, since discordance with absolute values may lead to misinterpretation of CBC data. Current Interpretive Data was last revised on 2017. Basophil pct 0.2 % [facility] Comment: Interpretive Data Percent cell count reference ranges are not reported, since discordance with absolute values may lead to misinterpretation of CBC data. Current Interpretive Data was last revised on 2017. Blood 06/15/2024 9:21 PM CDT 06/15/2024 9:30 PM CDT us Karma Kumar MD LAB BLOOD ORDERABLES Final Result Performing Organization Address [facility]/ZIP Co de Phone Number [facility] Department [place] [address] * (ABNORMAL) CBC with auto differential (06/15/2024 9:21 PM CDT) WBC 12.98(H) 3.80 - 9.90 K/cumm Hgb 12.8 11.9 - 15.5 g/dL [facility] Hct 37.7 35.6 - 45.5 % [facility] Plt 324 150 - 400 K/cumm [facility] MPV 10.9 9.1 - 12.3 fL [facility] RBC 4.99 3.90 - 5.20 M/cumm [facility] MCV 75.6(L) 81.3 - 96.4 fL [facility] MCH 25.7(L) 27.1 - 33.3 pg [facility] MCHC 34.0 32.3 - 35.7 g/dL [facility] RDW CV 14.9 11.1 - 14.9 % [facility] RDW SD 40.0 35.7 - 48.1 fL [facility] NRBC abs 0.00 0.00 - 0.01 K/cumm [facility] Blood Venous blood specimen / Unknown 06/15/2024 9:21 PM CDT 06/15/2024 9:30 PM CDT us Rod Cardenas MD LAB BLOOD ORDERABLES Final Re sult [facility] Department [place] [address] * Lipase (06/15/2024 9:21 PM CDT) Pathologist [facility] Lipase 53 10 - 99 Units/L Blood Venous blood specimen / Unknown 06/15/2024 9:21 PM CDT 06/15/2024 9:30 PM CDT us Rod Cardenas MD LAB BLOOD ORDERABLES Final Re sult [facility] Department [place] [address] * (ABNORMAL) Comprehensive metabolic panel (06/15/2024 9:21 PM CDT) Sodium 144 135 - 145 mmol/L Potassium, pl 3.5 3.3 - 4.9 mmol/L [facility] Chloride 105 97 - 110 mmol/L [facility] CO2 25 22 - 32 mmol/L [facility] Anion gap 14 2 - 15 mmol/L [facility] BUN 12 6 - 25 mg/dL [facility] Creatinine 0.82 0.60 - 1.10 mg/dL [facility] Glucose 112 70 - 199 mg/dL [facility] Comment: Interpretive Data Fasting glucose >/= 126 [...] Calcium 9.5 8.5 - 10.3 mg/dL [facility] Bilirubin, total 0.3 0.1 - 1.2 mg/dL [facility] Protein, pl 8.0 6.5 - 8.5 g/dL [facility] Albumin 4.8 3.5 - 5.0 g/dL [facility] Alk phos 77 40 - 130 Units/L [facility] ALT 40 7 - 45 Units/L [facility] AST 64(H) 10 - 45 Units/L [facility] Blood 06/15/2024 9:21 PM CDT 06/15/2024 9:30 PM CDT Rod Cardenas MD LAB BLOOD ORDERABLES Final Re sult Performing Organization Address City/State/[facility] Co de Phone Number [facility] Department [place] [address] from Last 3 Months Insurance [employer] OOS [employer] Care Teams Assistant Manager Airside Operations Relationship Specialty Start Date End Date No, Physician PCP - General 11/25/21
--- OUTSIDE RECORDS SUMMARY | 2024-07-10 12:14 | XMS_ITS | Data Portability ---
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 Plan of Treatment Reminders Order Date Submit Date Provider Last Modified By Organization Details Last Modified Time Details Appointments None recorded. Lab test, urine 2018 Kali thompson In-Office Order, Internal Use Only DO Not Attach Compendium DO Not Attach Compendium, Do Not Delete/merge, [id number] 9 15:16:34 bacterial vaginosis + vaginitis panel, vaginal - Z11.3, Z20.0 2018 019 [facility], [facility], [address], [place], [address], 9 16:28:57 HSV (1+2) DNA, qual, PCR, unspecifi ed specimen - Z11.3, Z20.2 2018 019 [facility], [address] [facility], [address], [place], [address], 9 16:28:58 culture, vaginal/r ectal, streptoco ccus group B - Z11.3, Z20.2 2018 019 [facility], [address] [facility], [address], [place], [address], 9 16:28:59 urinalysi s, dipstick 2018 019 donna In-Office Order, Internal Use Only DO Not Attach Compendium DO Not Attach Compendium, Do Not Delete/merge, [id number] 9 15:17:26 urinalysi s, dipstick 2017 018 donna In-Office Order, Internal Use Only DO Not Attach Compendium DO Not Attach Compendium, Do Not Delete/merge, [id number] 8 12:17:25 test, urine 2017 018 donna In-Office Order, Internal Use Only DO Not Attach Compendium DO Not Attach Compendium, Do Not Delete/merge, [id number] 8 12:17:25 hsv-2 (herpes simplex virus type 2) igg Ab, serum 2017 018 [facility], [address] [place] [address], [address], [place], [address], 8 10:22:09 hepatitis panel (A+B+C), acute, serum 2017 018 [email or web address] [facility], [address] [place] [address], [address], [place], [address], 8 10:22:09 hepatitis B surface Ab, qualitati ve, serum 2017 018 [email or web address] [facility], [address] [facility], [address], [place], [address], 8 10:22:09 HIV 1+2 AB + HIV 1 p24 Ag, qualitati ve immunoass ay, serum 2017 018 [email or web address] [facility], [address] Nely Rosario, [address], [address], 8 10:22:10 treponema pallidum screen, serum, reflex confirmat ion 2017 018 [facility] (Centralized Electronic Ordering - All Locations), Patient Can Go To The Location Of Their Choice, [id number] 8 13:10:20 bacterial vaginosis + vaginitis panel, vaginal - Z11.3, Z20.0 2017 018 [facility], [address] [place] [address], [address], [place], [address], 8 06:06:47 HSV (1+2) DNA, qual, PCR, unspecifi ed specimen - Z11.3, Z20.2 2017 018 [facility], [address] [place] [address], [address], [place], [address], 8 06:06:48 culture, vaginal/r ectal, streptoco ccus group B - Z11.3, Z20.2 2017 018 [facility], [address] [place] [address], [address], [place], [address], 8 06:06:48 CT + NG + TV, DNA, urine/swa b 2016 017 [facility], [address], [address] [address], [place], [address], 7 06:04:37 test, urine 2016 Lm thompson In-Office Order, Internal Use Only DO Not Attach Compendium DO Not Attach Compendium, Do Not Delete/merge, [id number] 7 13:27:11 urinalysi s, dipstick 2016 Lm thompson In-Office Order, Internal Use Only DO Not Attach Compendium DO Not Attach Compendium, Do Not Delete/merge, [id number] 7 13:27:11 test, urine 2015 016 DBA_PATCH_2 [id number] In-Office Order, Internal Use Only DO Not Attach Compendium DO Not Attach Compendium, Do Not Delete/merge, [id number] 6 04:33:23 urinalysi s, dipstick 2015 016 DBA_PATCH_2 [id number] In-Office Order, Internal Use Only DO Not Attach Compendium DO Not Attach Compendium, Do Not Delete/merge, [id number] 6 04:33:19 CT + NG + TV, DNA, urine/swa b 2015 016 [facility], [address], [address] [address], [place], [address], 6 06:05:44 Referral None recorded. Procedures None recorded. Surgeries None recorded. Imaging None recorded. Medication Orders metronida zole 500 mg tablet 2017 018 [facility]879, [address], [place], [id number], 8 13:02:48 fluconazo le 150 mg tablet 2017 018 [facility]36907, [address] [facility], [place], [place], [id number], 9 14:55:18 azithromy jamir 250 mg tablet 2017 018 [facility], [address], [place], [id number], 8 13:02:50 ceftriaxo ne 250 mg solution for injection 2017 [facility]18 [facility] 9 14:55:09 calcium 600 mg (as carbonate )-vitamin D3 20 mcg (800 unit) tablet 2017 018 [facility]66159, [address], [place], [id number], 8 13:02:49 multivita min tablet 2017 018 [facility] #91498, [address], [place], [id number], 8 13:02:50 Xulane 150 mcg-35 mcg/24 hr transderm al patch 2017 018 [facility] #75666, [address], [place], [id number], 8 13:02:49 Condoms-P rem Lubricate d 2017 018 [facility] #56600, [address], [place], [id number], 8 13:03:41 calcium 600 mg (as carbonate )-vitamin D3 20 mcg (800 unit) tablet 2016 017 [facility] #97526, [address], [place], [id number], 7 13:23:53 multivita min tablet 2016 017 [facility] #11182, [address], [place], [id number], 7 13:24:00 Xulane 150 mcg-35 mcg/24 hr transderm al patch 2015 016 [email or web address] #04956, [address], [place], [id number], 7 12:50:23 calcium 600 mg (as carbonate )-vitamin D3 20 mcg (800 unit) tablet 2015 016 [email or web address] #66215, [address], [place], [id number], 7 12:50:44 multivita min tablet 2015 016 [email or web address] #27749, [address], [place], [id number], 7 12:50:48 Patient TargetsNo targets recorded. Patient Instructions Encounter Date Encounter Id Patient Instructions Last Modified By Organization Details Last Modified Time 08/21/2017 [id number] vaginal bleeding after sex: care instructions mwasserman Not available 08/21/2017 12:17:25 Reason for Referral None Reported. Results Created Date Observation Date Name Description Value Unit Range Abnormal Flag Note LastModifiedBy Organization Detail LastModifiedTime 02/12/1902/12/2018 urina lysis , dipst ick Leukocytes Negati ve Not Available In-Office Order Internal Use Only DO Not Attach Compendium DO Not Attach Compendium, Do Not Delete/merge, [id number] 02/12/2018 15:16:40 02/12/1902/12/2018 urina lysis , dipst ick Nitrite negati ve Not Available In-Office Order Internal Use Only DO Not Attach Compendium DO Not Attach Compendium, Do Not Delete/merge, [id number] 02/12/2018 15:16:40 02/12/1902/12/2018 urina lysis , dipst ick Urobilinogen .2 Not Available In-Of fice Order Internal Use Only DO Not Attach Compendium DO Not Attach Compendium, Do Not Delete/merge, [id number] 02/12/2018 15:16:40 02/12/1902/12/2018 urina lysis , dipst ick Protein Negati ve Not Available In-Office Order Internal Use Only DO Not Attach Compendium DO Not Attach Compendium, Do Not Delete/merge, [id number] 02/12/2018 15:16:40 02/12/1902/12/2018 urina lysis , dipst ick pH 7.0 Not Available In-Office Order Internal Use Only DO Not Attach Compendium DO Not Attach Compendium, Do Not Delete/merge, 02/12/2018 15:16:40 02/12/19 19 02/12/2018 urina lysis , dipst ick Blood Negati ve Not Available In-Office Order Internal Use Only DO Not Attach Compendium DO Not Attach Compendium, Do Not Delete/merge, 02/12/2018 15:16:40 02/12/19 19 02/12/2018 urina lysis , dipst ick Specific [place] 1.020 Not Available In-Off ice Order Internal Use Only DO Not Attach Compendium DO Not Attach Compendium, Do Not Delete/merge, 02/12/2018 15:16:40 02/12/1902/12/2018 urina lysis , dipst ick Ketone Trace Not Available In-Office Order Internal Use Only DO Not Attach Compendium DO Not Attach Compendium, Do Not Delete/merge, 02/12/2018 15:16:40 02/12/1902/12/2018 urina lysis , dipst ick Bilirubin Negati ve Not Available In-Office Order Internal Use Only DO Not Attach Compendium DO Not Attach Compendium, Do Not Delete/merge, 02/12/2018 15:16:40 02/12/19 19 02/12/2018 urina lysis , dipst ick Glucose Negati ve Not Available In-Office Order Internal Use Only DO Not Attach Compendium DO Not Attach Compendium, Do Not Delete/merge, 02/12/2018 15:16:40 02/12/19 19 02/12/2018 pregn sheree test, urine HCG negati ve Not Available In-Office Order Internal Use Only DO Not Attach Compendium DO Not Attach Compendium, Do Not Delete/merge, 02/12/2018 15:13:53 08/22/19 18 08/21/2017 pregn hseree test, urine HCG negati ve Not Available In-Office Order Internal Use Only DO Not Attach Compendium DO Not Attach Compendium, Do Not Delete/merge, 08/21/2017 11:53:21 08/22/19 18 08/21/2017 urina lysis , dipst ick Leukocytes Negati ve Not Available In-Office Order Internal Use Only DO Not Attach Compendium DO Not Attach Compendium, Do Not Delete/merge, 08/21/2017 11:53:13 08/22/19 18 08/21/2017 urina lysis , dipst ick Nitrite negati ve Not Available In-Office Order Internal Use Only DO Not Attach Compendium DO Not Attach Compendium, Do Not Delete/merge, 08/21/2017 11:53:13 08/22/19 18 08/21/2017 urina lysis , dipst ick Urobilinogen .2 Not Available In-Of fice Order Internal Use Only DO Not Attach Compendium DO Not Attach Compendium, Do Not Delete/merge, 08/21/2017 11:53:13 08/22/19 18 08/21/2017 urina lysis , dipst ick Protein 30 Not Available In-Office Order Internal Use Only DO Not Attach Compendium DO Not Attach Compendium, Do Not Delete/merge, 08/21/2017 11:53:13 08/22/19 18 08/21/2017 urina lysis , dipst ick pH 6.0 Not Available In-Office Order Internal Use Only DO Not Attach Compendium DO Not Attach Compendium, Do Not Delete/merge, 08/21/2017 11:53:13 08/22/19 18 08/21/2017 urina lysis , dipst ick Blood Small Not Available In-Office Order Internal Use Only DO Not Attach Compendium DO Not Attach Compendium, Do Not Delete/merge, 08/21/2017 11:53:13 08/22/19 18 08/21/2017 urina lysis , dipst ick Specific [place] 1.025 Not Available In-Off ice Order Internal Use Only DO Not Attach Compendium DO Not Attach Compendium, Do Not Delete/merge, 08/21/2017 11:53:13 08/22/19 18 08/21/2017 urina lysis , dipst ick Ketone Negati ve Not Available In-Office Order Internal Use Only DO Not Attach Compendium DO Not Attach Compendium, Do Not Delete/merge, [id number] 08/21/2017 11:53:13 08/22/19 18 08/21/2017 urina lysis , dipst ick Bilirubin Negati ve Not Available In-Office Order Internal Use Only DO Not Attach Compendium DO Not Attach Compendium, Do Not Delete/merge, [id number] 08/21/2017 11:53:13 08/22/19 18 08/21/2017 urina lysis , dipst ick Glucose Negati ve Not Available In-Office Order Internal Use Only DO Not Attach Compendium DO Not Attach Compendium, Do Not Delete/merge, [id number] 08/21/2017 11:53:13 01/12/20 17 01/11/2017 urina lysis , dipst ick Leukocytes Negati ve Not Available In-Office Order Internal Use Only DO Not Attach Compendium DO Not Attach Compendium, Do Not Delete/merge, [id number] 01/11/2017 12:53:39 01/12/20 17 01/11/2017 urina lysis , dipst ick Nitrite negati ve Not Available In-Office Order Internal Use Only DO Not Attach Compendium DO Not Attach Compendium, Do Not Delete/merge, [id number] 01/11/2017 12:53:39 01/12/20 17 01/11/2017 urina lysis , dipst ick Urobilinogen .2 Not Available In-Of fice Order Internal Use Only DO Not Attach Compendium DO Not Attach Compendium, Do Not Delete/merge, [id number] 01/11/2017 12:53:39 01/12/20 17 01/11/2017 urina lysis , dipst ick Protein 100 Not Available In-Office Order Internal Use Only DO Not Attach Compendium DO Not Attach Compendium, Do Not Delete/merge, [id number] 01/11/2017 12:53:39 01/12/20 17 01/11/2017 urina lysis , dipst ick pH 7.5 Not Available In-Office Order Internal Use Only DO Not Attach Compendium DO Not Attach Compendium, Do Not Delete/merge, [id number] 01/11/2017 12:53:39 01/12/20 17 01/11/2017 urina lysis , dipst ick Blood Negati ve Not Available In-Office Order Internal Use Only DO Not Attach Compendium DO Not Attach Compendium, Do Not Delete/merge, [id number] 01/11/2017 12:53:39 01/12/20 17 01/11/2017 urina lysis , dipst ick Specific [place] 1.020 Not Available In-Off ice Order Internal Use Only DO Not Attach Compendium DO Not Attach Compendium, Do Not Delete/merge, [id number] 01/11/2017 12:53:39 01/12/20 17 01/11/2017 urina lysis , dipst ick Ketone Negati ve Not Available In-Office Order Internal Use Only DO Not Attach Compendium DO Not Attach Compendium, Do Not Delete/merge, [id number] 01/11/2017 12:53:39 01/12/20 17 01/11/2017 urina lysis , dipst ick Bilirubin Negati ve Not Available In-Office Order Internal Use Only DO Not Attach Compendium DO Not Attach Compendium, Do Not Delete/merge, [id number] 01/11/2017 12:53:39 01/12/20 17 01/11/2017 urina lysis , dipst ick Glucose Negati ve Not Available In-Office Order Internal Use Only DO Not Attach Compendium DO Not Attach Compendium, Do Not Delete/merge, [id number] 01/11/2017 12:53:39 01/12/20 17 01/11/2017 pregn sheree test, urine HCG negati ve Not Available In-Office Order Internal Use Only DO Not Attach Compendium DO Not Attach Compendium, Do Not Delete/merge, [id number] 01/11/2017 12:53:21 01/20/20 16 01/20/2016 urina lysis , dipst ick Leukocytes Negati ve Not Available In-Office Order Internal Use Only DO Not Attach Compendium DO Not Attach Compendium, Do Not Delete/merge, [id number] 01/20/2016 15:17:46 01/20/20 16 01/20/2016 urina lysis , dipst ick Nitrite negati ve Not Available In-Office Order Internal Use Only DO Not Attach Compendium DO Not Attach Compendium, Do Not Delete/merge, [id number] 01/20/2016 15:17:46 01/20/20 16 01/20/2016 urina lysis , dipst ick Urobilinogen .2 Not Available In-Of fice Order Internal Use Only DO Not Attach Compendium DO Not Attach Compendium, Do Not Delete/merge, [id number] 01/20/2016 15:17:46 01/20/20 16 01/20/2016 urina lysis , dipst ick Protein 30 Not Available In-Office Order Internal Use Only DO Not Attach Compendium DO Not Attach Compendium, Do Not Delete/merge, [id number] 01/20/2016 15:17:46 01/20/20 16 01/20/2016 urina lysis , dipst ick pH 6.0 Not Available In-Office Order Internal Use Only DO Not Attach Compendium DO Not Attach Compendium, Do Not Delete/merge, [id number] 01/20/2016 15:17:46 01/20/20 16 01/20/2016 urina lysis , dipst ick Blood Non-He molyze d: Trace Not Available In-Office Order Internal Use Only DO Not Attach Compendium DO Not Attach Compendium, Do Not Delete/merge, [id number] 01/20/2016 15:17:46 01/20/20 16 01/20/2016 urina lysis , dipst ick Specific [place] 1.030 Not Available In-Off ice Order Internal Use Only DO Not Attach Compendium DO Not Attach Compendium, Do Not Delete/merge, [id number] 01/20/2016 15:17:46 01/20/20 16 01/20/2016 urina lysis , dipst ick Ketone Negati ve Not Available In-Office Order Internal Use Only DO Not Attach Compendium DO Not Attach Compendium, Do Not Delete/merge, [id number] 01/20/2016 15:17:46 01/20/20 16 01/20/2016 urina lysis , dipst ick Bilirubin Negati ve Not Available In-Office Order Internal Use Only DO Not Attach Compendium DO Not Attach Compendium, Do Not Delete/merge, [id number] 01/20/2016 15:17:46 01/20/20 16 01/20/2016 urina lysis , dipst ick Glucose Negati ve Not Available In-Office Order Internal Use Only DO Not Attach Compendium DO Not Attach Compendium, Do Not Delete/merge, [id number] 01/20/2016 15:17:46 01/20/20 16 01/20/2016 pregn sheree test, urine HCG negati ve Not Available In-Office Order Internal Use Only DO Not Attach Compendium DO Not Attach Compendium, Do Not Delete/merge, [id number] 01/20/2016 15:17:35 01/20/20 16 01/21/2016 CT + NG + TV, DNA, urine /swab chlamydia by RICHARD NEGATI VE negati ve Not Available [facility] ([facility]) [address] [place], [address], 01/22/2016 06:05:44 01/20/20 16 01/21/2016 CT + NG + TV, DNA, urine /swab gonococcus by RICHARD NEGATI VE negati ve Not Available [facility] ([facility]) [address] [place] [address], [address], 01/22/2016 06:05:44 01/20/20 16 01/21/2016 CT + NG + TV, DNA, urine /swab trich vag by RICHARD NEGATI VE negati ve Not Available [facility] ([facility]) [address] [place] [address], [address], 01/22/2016 06:05:44 01/12/20 17 01/15/2017 CT + NG + TV, DNA, urine /swab chlamydia by RICHARD NEGATI VE negati ve Not Available [facility] ([facility]) [address] [place], [address], 01/15/2017 06:04:36 01/12/20 17 01/15/2017 CT + NG + TV, DNA, urine /swab gonococcus by RICHARD NEGATI VE negati ve Not Available [facility] ([facility]) [address] [place], [address], 01/15/2017 06:04:36 01/12/20 17 01/15/2017 CT + NG + TV, DNA, urine /swab trich vag by RICHARD NEGATI VE negati ve Not Available [facility] ([facility]) [address] [place], [address], 01/15/2017 06:04:36 08/22/19 18 08/25/2017 bacte rial vagin osis + vagin itis panel , vagin al trich vag by RICHARD NEGATI VE negati ve Not Available [facility] ([facility]) [address], [place], [address], 09/06/2017 06:06:47 08/22/19 18 08/25/2017 bacte rial vagin osis + vagin itis panel , vagin al chlamydia trachomatis, RICHARD NEGATI VE negati ve Not Available [facility] ([facility]) [address] [place], [address], 09/06/2017 06:06:47 08/22/19 18 08/25/2017 bacte rial vagin osis + vagin itis panel , vagin al neisseria gonorrhoeae, RICHARD NEGATI VE negati ve Not Available [facility] ([facility]) [address], [place], [address], 09/06/2017 06:06:47 08/22/19 18 08/29/2017 bacte rial vagin osis + vagin itis panel , vagin al atopobium vaginae HIGH - 2 score abnormal Not Available [facility] ([facility]) [address] [place], [address], 09/06/2017 06:06:47 08/22/19 18 08/29/2017 bacte rial vagin osis + vagin itis panel , vagin al bvab 2 HIGH - 2 score abnormal Not Available [facility] ([facility]) [address] [place], [address], 09/06/2017 06:06:47 08/22/19 18 08/29/2017 bacte rial vagin osis + vagin itis panel , vagin al megasphaera 1 HIGH - 2 score abnormal Calcu late total score by caterina batista the 3 indiv idual bacte rial vagin osis (BV) marke r score s toget her. Total score is inter prete d as follo ws: Total score 0-1: Indic ates the absen ce of BV. Total score 2: Indet ermin ate for BV. Addit ional clini joseph data shoul d be evalu ated to estab mitchell a diagn osis. Total score 3-6: Indic ates the prese nce of BV. This test was devel oped and its perfo rmanc e pat cteri stics deter mined by [facility]. It has not been clear ed or appro gian by the Food and Drug Admin istra tion. The FDA has deter mined that such clear ance or appro bassam is not neces marcie. Not Available [facility] ([facility]) [address] [place], [address], 09/06/2017 06:06:47 08/22/19 18 08/29/2017 bacte rial vagin osis + vagin itis panel , vagin al felipa albicans, RICHARD NEGATI VE negati ve Not Available [facility] ([facility]) [address] [place], [address], 09/06/2017 06:06:47 08/22/19 18 08/29/2017 bacte rial vagin osis + vagin itis panel , vagin al felipa glabrata, RICHRAD NEGATI VE negati ve This test was devel oped and its perfo rmanc e pat cteri stics deter mined by [facility]. It has not been clear ed or appro gian by the Food and Drug Admin istra tion. The FDA has deter mined that such clear ance or appro bassam is not neces marcie. Not Available [facility] ([facility]) [address] [place], [address], 09/06/2017 06:06:47 08/22/19 18 08/24/2017 HSV (1+2) DNA, qual, PCR, unspe cifie d speci men hsv 2 RICHARD NEGATI VE negati ve Not Available [facility] ([facility]) [address], [place], [address], 09/06/2017 06:06:48 08/22/19 18 09/05/2017 HSV (1+2) DNA, qual, PCR, unspe cifie d speci men hsv 1 RICHARD NEGATI VE negati ve Not Available [facility] ([facility]) [address], [place], [address], 09/06/2017 06:06:48 08/22/1908/24/2017 cultu re, vagin al/re ctal, strep tococ cus group B strep gp B RICHARD NEGATI VE negati ve [facility] n[facility] ([facility]) and Ameri can Congr ess of Obste trici ans and Gynec ologi sts (ACOG ) guide lines for preve ntion of perin atal group B strep tococ joseph (GBS) disea se speci fy co-co llect ion of a vagin al and recta l swab speci men to maxim ize sensi tivit y of GBS detec tion. Per the CDC and ACOG, swabb ing both the lower vagin a and rectu m subst antia lly incre ases the yield of detec tion michelle red with sampl ing the vagin a alone . Penic illin G, ampic illin , or cefaz vicenta are indic ated for intra partu m proph ylaxi s of perin atal GBS colon izati on. Refle x susce ptibi lity testi ng shoul d be perfo rmed prior to use of clind amyci n only on GBS isola andree from penic illin -ernesto rgic women who are consi dered a high risk for anaph ylaxi s. Treat ment with vanco mycin witho ut addit ional testi ng is warra nted if resis tance to clind amyci n is noted . Not Available [facility] ([facility]) [address], [place], [address], 09/06/2017 06:06:48 02/12/1902/14/2018 bacte rial vagin osis + vagin itis panel , vagin al trich vag by RICHARD Negati ve negati ve Not Available [facility] ([facility]) [address] [place], [address], 02/15/2018 16:28:57 02/12/19 19 02/14/2018 bacte rial vagin osis + vagin itis panel , vagin al neisseria gonorrhoeae, RICHARD Negati ve negati ve Not Available [facility] ([facility]) [address], [place], [address], 02/15/2018 16:28:57 02/12/19 19 02/15/2018 bacte rial vagin osis + vagin itis panel , vagin al atopobium vaginae High - 2 score abnormal Not Available [facility] ([facility]) [address] [place], [address], 02/15/2018 16:28:57 02/12/19 19 02/15/2018 bacte rial vagin osis + vagin itis panel , vagin al bvab 2 High - 2 score abnormal Not Available [facility] ([facility]) [address] [place] [address], [address], 02/15/2018 16:28:57 02/12/1902/15/2018 bacte rial vagin osis + vagin itis panel , vagin al megasphaera 1 High - 2 score abnormal Calcu late total score by addin g the 3 indiv idual bacte rial vagin osis (BV) marke r score s toget her. Total score is inter prete d as follo ws: Total score 0-1: Indic ates the absen ce of BV. Total score 2: Indet ermin ate for BV. Addit ional clini joseph data shoul d be evalu ated to estab mitchell a diagn osis. Total score 3-6: Indic ates the prese nce of BV. This test was devel oped and its perfo rmanc e pat cteri stics deter mined by [facility]. It has not been clear ed or appro gian by the Food and Drug Admin istra tion. The FDA has deter mined that such clear ance or appro bassam is not neces marcie. Not Available [facility] ([facility]) [address] [place], [address], 02/15/2018 16:28:57 02/12/1902/15/2018 bacte rial vagin osis + vagin itis panel , vagin al felipa albicans, RICHARD Negati ve negati ve Not Available [facility] ([facility]) [address] [place], [address], 02/15/2018 16:28:57 02/12/1902/15/2018 bacte rial vagin osis + vagin itis panel , vagin al felipa glabrata, RICHARD Negati ve negati ve This test was devel oped and its perfo rmanc e pat cteri stics deter mined by [facility]. It has not been clear ed or appro gian by the Food and Drug Admin istra tion. The FDA has deter mined that such clear ance or appro bassam is not neces marcie. Not Available [facility] ([facility]) [address], [place], [address], 02/15/2018 16:28:57 02/12/1902/15/2018 bacte rial vagin osis + vagin itis panel , vagin al chlamydia trachomatis, RICHARD Positi ve negati ve abnormal Not Available [facility] ([facility]) [address] [place], [address], 02/15/2018 16:28:57 02/12/1902/14/2018 HSV (1+2) DNA, qual, PCR, unspe cifie d speci men hsv 1 RICHARD Positi ve negati ve abnormal Not Available [facility] ([facility]) [address] [place], [address], 02/15/2018 16:28:58 02/12/19 19 02/14/2018 HSV (1+2) DNA, qual, PCR, unspe cifie d speci men hsv 2 RICHARD Negati ve negati ve Not Available [facility] ([facility]) [address], [place], [address], 02/15/2018 16:28:58 02/12/19 19 02/14/2018 cultu re, vagin al/re ctal, strep tococ cus group B strep gp B RICHARD Positi ve negati ve abnormal Cente rs for Disea se Contr ol and Preve ntion (CDC) and Ameri can Congr ess of Obste trici ans and Gynec ologi sts (ACOG ) guide lines for preve ntion of perin atal group B strep tococ joseph (GBS) disea se speci fy co-co llect ion of a vagin al and recta l swab speci men to maxim ize sensi tivit y of GBS detec tion. Per the CDC and ACOG, swabb ing both the lower vagin a and rectu m subst antia lly incre ases the yield of detec tion michelle red with sampl ing the vagin a alone . Penic illin G, ampic illin , or cefaz vicenta are indic ated for intra partu m proph ylaxi s of perin atal GBS colon izati on. Refle x susce ptibi lity testi ng shoul d be perfo rmed prior to use of clind amyci n only on GBS isola andree from penic illin -ernesto rgic women who are consi dered a high risk for anaph ylaxi s. Treat ment with vanco mycin witho ut addit ional testi ng is warra nted if resis tance to clind amyci n is noted . Not Available [facility] ([facility]) [address], [place], [address], 02/15/2018 16:28:59 Result Notes None recorded. Problems Name Problem SNOMED Code Status Onset Date Resolution Date Notes Provider Name and Address Organization Details Recorded Time Acute cervicitis Active 018 Sheldon dalton, [facility] 8 13:01:57 Postcoital bleeding 74986460 Active Alexy dalton [facility] 8 13:02:00 Bacterial vaginosis 748904275 Active 018 Sheldon dalton [facility] 8 19:17:39 Chlamydial infection 517716054 Active Sheldon dalton [facility] 6 18:50:59 Problem Notes None recorded. Procedures Surgical History Date Name Laterality Status Provider Name and Address Organization Details Recorded Time 8 Date of Last Pap Smear completed Sheldon Mehta [facility] 02/12/2018 14:58:27 7 Control Implant Removal completed Angelita French MA [facility] 01/11/2017 12:53:09 6 Control Implant Insertion completed Sheldon Mehta [facility] 06/03/2015 16:19:47 Imaging Results None recorded. Procedure Notes None recorded. Medical Equipment None Reported. Allergies No known drug allergies Medications Name Sig Start Date Stop Date Status Note LastModified by Organization Details LastModified Time multivitami n tablet Take 1 tablet every day by oral route. 2017 active Not Available Not Available Not Avai lable Sulfatrim 200 mg-40 mg/5 mL oral suspension active Not Available Not Available N ot Available azithromyci n 250 mg tablet TAKE 2 TABLETS (500 MG) BY ORAL ROUTE ONCE DAILY FOR 1 DAY THEN 1 TABLET (250 MG) BY ORAL ROUTE ONCE DAILY FOR 4 DAYS active Not Available Not Available No t Available fluconazole 150 mg tablet Take 1 tablet by oral route. 02/12 completed Not Available Not Available Not Available metronidazo le 0.75 % (37.5 mg/5 gram) vaginal gel Insert 1 applicato rful every day by vaginal route at bedtime for 5 days. active Not Available Not Available No t Available ceftriaxone 250 mg solution for injection Take 250 mg by injection route. 02/12 completed Not Available Not Available Not Available metronidazo le 500 mg tablet Take 1 tablet twice a day by oral route for 7 days. active Not Available Not Available No t Available ciprofloxac in 500 mg tablet 08/21 completed Not Available Not Available Not Available sulfamethox azole 800 mg-trimetho prim 160 mg tablet 01/11 completed Not Available Not Available Not Available Condoms-Pre m Lubricated Take 1 device as needed by miscell. route as needed. 2017 active Not Available Not Available Not Avai lable mupirocin 2 % topical ointment 01/11 completed Not Available Not Available Not Available azithromyci n 500 mg tablet TAKE 2 TABLETS (500 MG) BY ORAL ROUTE ONCE DAILY FOR 1 DAY THEN 1 TABLET (250 MG) BY ORAL ROUTE ONCE DAILY FOR 4 DAYS 2018 active Not Available Not Available Not Avai lable Nexplanon 68 mg subdermal implant Inject 1 implant by subcutane ous route. 08/21 completed Not Available Not Available Not Available calcium 600 mg (as carbonate)- vitamin D3 20 mcg (800 unit) tablet Take 1 tablet twice a day by oral route for 30 days. 2017 active Not Available Not Available Not Avai lable Xulane 150 mcg-35 mcg/24 hr transdermal patch Appy 1 patch to skin weekly active Not Available Not Available No t Available Caltrate Gummy Bites 250 mg-10 mcg (400 unit) chewable tablet Take 1 tablet twice a day by oral route. 01/11 completed Not Available Not Available Not Available Vitals Date Recorded Body height Respiratory rate Heart rate Body mass index (BMI) Percentile per age and sex Body mass index (BMI) Body weight Systolic blood pressure Diastolic blood pressure Provider Name and Address Organization Details Last Updated DateTime 9 157.48 cm 14 /min 68 /min 43 % 21 kg/m2 86891.1 2 g 106 mm[Hg] 64 mm[Hg] Sheldon Mehta [place] - [facility] 9 14:53:59 Date Recorded Body height Body mass index (BMI) Body weight Systolic blood pressure Diastolic blood pressure Provider Name and Address Organization Details Last Updated DateTime 08/21/2017 157.48 cm 20.7 kg/m2 89870.94 g 110 mm[Hg] 66 mm[Hg] Brit Sesay [place] - [facility] 8 12:15:57 Date Recorded Body height Body mass index (BMI) Body weight Systolic blood pressure Diastolic blood pressure Provider Name and Address Organization Details Last Updated DateTime 01/11/2017 157.48 cm 20.7 kg/m2 15021.94 g 96 mm[Hg] 64 mm[Hg] Angelita French MA [facility] 7 12:55:56 Date Recorded Body height Body weight Body mass index (BMI) Systolic blood pressure Diastolic blood pressure Provider Name and Address Organization Details Last Updated DateTime 01/20/2016 157.48 cm 20325.31 g 21.4 kg/m2 98 mm[Hg] 56 mm[Hg] Estela Alvarez MA [facility] 6 15:19:37 Social History Question Answer Notes LastModified by Organizat ion Details LastModified Time Tobacco Smoking Status Never Smoker Estela Alvarez MA [facility] 02/18/2015 16:35:09 Do You Have An Advance Directive? No Information not available 02/18/2015 What Is Your Level Of Caffeine Consumption? Occasional Information not available 02/18/2015 How Much Tobacco Do You Chew? None Information not available 02/18/2015 What Type Of Diet Are You Following? REGULAR Information not available 02/18/2015 Which Illicit Or Recreational Drugs Have You Used? None Information not available 02/18/2015 Education 10 Information no t available 02/18/2015 Live Alone Or With Others? With Others Information not available 02/18/2015 What Was The Date Of Your Most Recent Tobacco Screening? 02/12/2018 Information not available 08/29/2018 How Many Children Do You Have? 0 Information not available 02/18/2015 Performs Monthly Self-breast Exam? No Information no t available 02/18/2015 Do You Use Protection During Sex? Usually Information not available 02/18/2015 What Is Your Relationship Status? Single Information not available 02/18/2015 Seat Belts Used Routinely Yes Information not available 02/18/2015 Are You Sexually Active? Yes Information not available 02/18/2015 How Much Tobacco Do You Smoke? No [email or web address] Information not available 06/04/2015 General Stress Level Low Information not available 02/18/2015 Do You Use Sunscreen Routinely? Yes Information not available 02/18/2015 How Many Years Have You Smoked Tobacco? 0 [email or web address] Information not available 06/04/2015 Sex: Unknown Functional Status Question Answer Note LastModified by Organizat ion Details LastModified Time What is your level of alcohol consumption? None Information not available 02/18/2015 Are you currently employed? 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 None Information not available 02/18/2015 Mental Status None recorded. Family History Relationship Description Onset Age of this Age Resolved Age Notes LastModified by Organization Details LastModified Time Maternal Grandmother Diabetes mellitus [email or web address] Not available 06/06 10:40:08 Medical History Condition Response Other N High Blood Pressure N Breast Cancer N Thyroid Problems N Kidney or Bladder Problems N GI Problems N Depression N Blood Clots N Lung Disease N Acne N Eating Disorder N Breast Problem N Anemia Y Anesthesia Complications N Headaches/Migraines N Anxiety Disorder N Diabetes N Ovarian Cancer N Muscle, Joint, or Bone Problems N Blood Transfusions N Seizures/Epilepsy N Polyps N Infertility N Acid Reflux (GERD) N Cancer N Abuse/Domestic Violence N Asthma N Endometriosis N High Cholesterol N Hepatitis N Liver Disease N Heart Disease N Pre-Eclampsia N Osteoporosis N Gynecological History Statement/Question Response Abnormal Pap Flow Moderate On BCP's at Conception? N STIs/STDs Y HPV Vaccine Y Duration of Flow (days) 5 Age at Menarche 10 Current Control Method None Age at First Child Frequency of Cycle (Q days) 28 Sexually Active? Y Menses Monthly No Date of Last Pap Smear 08/21/2017 Sexual Problems? N LMP Approximate Desired Control Method None Obstetrics History GPAL:G 0 P 0 0 0 0 Type Value Multiple Births 0 Full Term 0 Induced 0 Spontaneous 0 Premature 0 Living 0 Ectopics 0 Total 0 Immunizations Vaccine Type Date Status Note Provider Nam e and Address Organization Details Recorded Time HPV9 8 completed Not Available [facility] 02/22/2019 02:35:52 HPV9 9 completed Not Available [facility] 02/22/2019 02:37:03 HPV, quadrivalent 3 completed Sheldon Janine [place], [place] - [facility] 02/18/2015 16:51:00 Past Encounters Encounter ID Performer Location Encounter Start Date Encounter Closed Date Diagnosis/Indication Diagnosis SNOMED-CT Code Diagnosis ICD10 Code Diagnosis Note [id number] MD Dmitry Mendoza ([employer] [employer]) [address] [place] [id number] 02/18/2015 15:38:06 02/18/2015 16:55:46 Family planning surveillance 880631223 Z30.09 Venereal d isease screening 114255085 Z11.3 [id number] [facility] [address] [place] [address] [id number] 0 06/03/2015 14:37:36 06/03/2015 19:00:53 Family planning surveillance 121045964 Z30.09 Venereal d isease screening 388985424 Z11.3 Subcutaneo us contraceptive implant palpable 845661787 Z30.49 Nexplanon Insertion Implantati on of subcutaneous contraceptive 492284266 Z30.9 [id number] [facility] [address] [place] [address] [phone] 0 01/20/2016 14:20:58 01/21/2016 15:30:01 Family planning surveillance 086187730 Z30.09 [id number] [facility] [address] [place] [id number] 01/11/2017 11:44:14 01/15/2017 12:59:38 Removal of subcutaneous contraceptive done 9004930533 13600 Z30.46 At [facility] risk of sexually transmitted infection 453236740 Z20.2 Family henry nning surveillance 883299442 Z30.09 [id number] MD Dmitry Mendoza ([employer]) [address] [place] [address] [phone] 08/21/2017 11:35:43 08/21/2017 13:36:52 Postcoital bleeding 36403677 N93.0 Family henry nning surveillance 489385221 Z30.09 Acute cervicitis 4369398 0 N72 Exposure t o sexually transmissible disorder 597493056 Z20.2 Z11.3 [id number] Sheldon Mehta MD [facility] ([facility]) [address] [place] [phone] 02/12/2018 14:33:39 02/13/2018 12:28:56 Exposure to sexually transmissible disorder 994188019 Z20.2 Active or passive immunization 172356144 Z23 Health Concerns Section Related Observation LastModified by Organization Detai ls LastModified Time None Recorded Concern Status LastModified by Organization Details LastModified Time None Recorded Advance Directives Directive N: Payers Encounter Date Sequence Insurance Name Policy Number Policy Bowers Covered Member ID Bowers Member ID Guarantor Name 01/20/2016 1 [place] [id number] Arpit Bellas [id number] Maura Bellas 01/20/2016 2 [place] [facility] Radha Funk [id number] Maura Bellas 01/11/2017 1 [place] [id number] Arpit Bellas [id number] Maura Bellas 01/11/2017 2 [place] [facility] Radha Funk [id number] Maura Bellas 08/21/2017 1 [place] [id number] Arpit Funk [id number] Maura Bellas 02/12/2018 1 [place] [id number] Arpit Bellas [id number] Maura Funk Notes Date Note Type Note Provider Name and Address Organization Details Recorded Time 01/20/2016 text/html 15 yo prese nts for Nexplanon check. Pt desires monthly period. JENNIFER Mendieta 01/20/2016 18:35:51 01/11/2017 text/html OCP CheckReporte d bypatient.Associated Symptoms:regular menses; no BTB menses; no side effects 15 yo presents for Nexplanon removal. Pt desires monthly period. JENNIFER Mendieta 01/11/2017 13:42:25 08/21/2017 text/html Abnormal BleedingReported bypatient.Quality:mode rate Context:occurs after intercourse; history of STD/pelvic infection Associated Symptoms:no abdominal pain; no dyspareunia; no fatigue; no dizziness; no anemia/iron supplements; no shortness of breath; no CP/palpitations; no bloating; no change in bowel function; no urinary symptoms; no PMS; no vaginal discharge; no vaginal itching/irritation;dys menorrhea;pelvic pain 16yo HF with c/o of BRB during and after intercourse x2 mos. Nexplanon removed 3 mos ago, no current BC practiced. Multiple partners. JENNIFER Mendieta [facility] 08/21/2017 13:57:45 02/12/2018 text/html MR is a 17yo hf here for STD check due to bumps in genital area. JENNIFER Mendieta SI 02/12/2018 17:27:43 OBGyn Episode No OBEpisode recorded.
[2024-07-10 12:16] LABS: Alanine Aminotransferase 63 U/L (6-35); Albumin Level 4.6 g/dL (3.5-5.1); Alkaline Phosphatase 94 U/L (38-126); Anion Gap 7 mmol/L (4-12); Aspartate Amino Transferase 35 U/L (14-36); Bilirubin,Total 0.4 mg/dL (0.2-1.3); Blood Urea Nitrogen 13 mg/dL (7-17); Calcium 9.5 mg/dL (8.4-10.2); Carbon Dioxide 28 mmol/L (22-30); Chloride 104 mmol/L (98-107); Cholesterol 163 mg/dL (0-200); Estimated Glomerular Filt Rate > 60; Glucose 81 mg/dL (65-110); HDL Direct 52 mg/dL; Potassium 4.2 mmol/L (3.4-5.0); Sodium 139 mmol/L (137-145); Total Protein 7.6 g/dL (6.3-8.2); Triglycerides 71 mg/dL (<150)
[2024-07-10 12:19] LABS: LDL Cholesterol Direct 75 mg/dL
== END 2024-07-10 11:06 | disposition home or self-care (01) ==
LOC: ANHLAB 11:07
PROVIDERS: PCP Nurse Practitioner Family; Visit Provider Nurse Practitioner Family
DX: K80.20 Calculus of gallbladder without cholecystitis without obstruction (principal); Z00.00 Encounter for general adult medical examination without abnormal findings; Z76.89 Persons encountering health services in other specified circumstances; K21.9 Gastro-esophageal reflux disease without esophagitis; Z13.220 Encounter for screening for lipoid disorders; Z13.0 Encounter for screening for diseases of the blood and blood-forming organs and certain disorders involving the immune mechanism; Z13.228 Encounter for screening for other metabolic disorders
CPT/HCPCS: 36415; 80053; 80061; 85027